=== PATIENT | female | born 1995 | race Caucasian/White ===

== ENCOUNTER 2018-06-16 20:28 | Emergency (ER) | payer OTHER, SELFPAY ==
--- OUTSIDE RECORDS SUMMARY | 2018-06-16 20:31 | XMS REPORT ---
:1995 Author Organization [employer] Care Team Providers Name Role Phone Carmela Rasmussen Provider Role Unavailable Allergies, Adverse Reactions, Alerts Substance Reaction Event Type N.K.D.A. 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 Active Assessment Acute maxillary sinusitis, J01.00 Active recurrence not specified Problem (spontaneous vaginal delivery) O80 Active Problem High-risk , young O09.623 Active multigravida in third trimester Problem LGSIL on Pap smear of cervix R87.612 Active Problem Smoker F17.200 Active Assessment exam Z39.2 Active Problem growth retardation, P05.9 Active 2,000-2,499 grams Problem GBS (group B Streptococcus O99.820 Active carrier), +RV culture, currently Medications Medication Code Code Instructions Start End Status Dosage System Date Date Amoxicillin ND 16244544728 500 MG Orally FebruaryMarch 11, Active 2 tablets every 8 hrs 2017 2018 Loestrin Fe [facility] 10032504637 1-20 MG-MCG Active 1 tablet 1/20 Orally Once a day Results Name Result Date Reference Range Unit Abnormality Flag TEST URINE ----RESULTS NEG 20180306 URINALYSIS AUTO W/O SCOPE (45997) ----PROTEIN NEG 20180306 ----pH 6.5 20180306 ----NIT NEG 20180306 ----ANDREWS TRACE 20180306 ----URO 0.2 20180306 ----SPECIFIC GRAVITY 1.015 20180306 ----BLO NEG 20180306 ----BILIRUBIN NEG 20180306 ----KETONES NEG 20180306 ----GLUCOSE NEG 20180306 Summary Purpose [employer] Submission
[2018-06-16] MEDS ORDERED: KETOROLAC 30 MG/ML INJ ONE (21:06)
[2018-06-16] MEDS ORDERED: AMOX/K CLAV 875 MG TAB ONE (21:06)
[2018-06-16] MEDS ORDERED: ACETAMINOPHEN 325 MG TABLET ONE (21:17)
--- NOTE | 2018-06-16 22:29 | ER ---
Nurse's Notes [facility] Name: Sarah Arriola Age: 23 yrs Sex: Female : 1995 Arrival Date: 06/16/2018 Time: 20:32 Bed 26 Private MD: Diagnosis: Otalgia, right ear;Sinusitis Presentation: 06/16 20:43 Presenting complaint: Patient states: she is having severe right ear pain that started kr2 on Friday and has progressively gotten worse. Pain started in left ear today. She has had a cough with green/brown mucous production. Transition of care: patient was not received from another setting of care. Onset of symptoms was June 12, 2018. Risk Assessment: Do you want to hurt yourself or someone else? Patient reports no desire to harm self or others. Initial Sepsis Screen: Does the patient meet any 2 criteria? No. Patient's initial sepsis screen is negative. Does the patient have a suspected source of infection? No. Patient's initial sepsis screen is negative. Care prior to arrival: None. 20:43 Method Of Arrival: Ambulatory kr2 20:43 Acuity: HONG 4 kr2 Triage Assessment: 20:47 General: Appears in no apparent distress. uncomfortable, well groomed, Behavior is kr2 calm, cooperative, appropriate for age. Pain: Complains of pain in ears, head Pain currently is 8 out of 10 on a pain scale. Quality of pain is described as aching, Is continuous, Alleviated by nothing. EENT: Reports sinus congestion . 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 - Social history:: Smoking status: Patient/guardian denies using tobacco. - Ebola Screening: : No symptoms or risks identified at this time. Screenin:48 Abuse screen: Denies threats or abuse. Denies injuries from another. Nutritional kr2 screening: No deficits noted. Tuberculosis screening: No symptoms or risk factors identified. Fall Risk None identified. Assessment: 20:54 General: Appears in no apparent distress. comfortable, Behavior is calm, cooperative. rv Pain: Complains of pain in right ear and left ear. Neuro: Level of Consciousness is awake, alert, obeys commands, Oriented to person, place, time, situation. Cardiovascular: Capillary refill < 3 seconds. Respiratory: Airway is patent. GI: No signs and/or symptoms were reported involving the gastrointestinal system. : No signs and/or symptoms were reported regarding the genitourinary system. EENT: No signs and/or symptoms were reported regarding the EENT system. Derm: Skin is intact. 22:33 Reassessment: Patient appears in no apparent distress at this time. Patient and/or kr2 family updated on plan of care and expected duration. Pain level reassessed. Patient is alert, oriented x 3, equal unlabored respirations, skin warm/dry/pink. Patient states feeling better. Patient states symptoms have improved. Vital Signs: 20:42 BP 139 / 83; Pulse 110; Resp 18; Temp 100.3; Pulse Ox 99% on R/A; Weight 97.98 kg; kr2 Height 5 ft. 6 in. (167.64 cm); Pain 8/10; 22:28 BP 110 / 89; Pulse 84; Resp 17; Temp 98.9; Pulse Ox 98% on R/A; kr2 20:42 Body Mass Index 34.86 (97.98 kg, 167.64 cm) kr2 ED Course: 20:32 Patient arrived in ED. es 20:42 Giana Daly, RN is Primary Nurse. kr2 20:46 Triage completed. kr2 20:48 Arm band placed on. kr2 20:49 Kwame Ayala PA is PHCP. [facility] 20:49 Thomas Rivera MD is Attending Physician. jmm 20:50 Patient has correct armband on for positive identification. Bed in low position. Call kr2 light in reach. Side rails up X 1. Pulse ox on. NIBP on. Door closed. Verbal reassurance given. Head of bed elevated. 22:28 Keiry Flaherty MD is Referral Physician. [facility] 22:33 No provider procedures requiring assistance completed. Patient did not have IV access kr2 during this emergency room visit. Administered Medications: 21:05 Drug: Ketorolac 30 mg Route: IM; Site: right deltoid; rv 21:06 Follow up: Response: Medication administered at discharge. rv 21:06 Drug: Augmentin 875 mg Route: PO; rv 21:06 Follow up: Response: Medication administered at discharge. rv 21:14 Drug: Tylenol 650 mg Route: PO; kr2 22:29 Follow up: Response: No adverse reaction; Temperature is decreased; Pain is decreased kr2 Outcome: 22:29 Discharge ordered by . christine 22:34 Discharged to home ambulatory. kr2 22:34 Condition: good 22:34 Discharge instructions given to patient, Instructed on discharge instructions, follow up and referral plans. medication usage, Demonstrated understanding of instructions, follow-up care, medications, Prescriptions given X 2. 22:34 Patient left the ED. kr2 Signatures: Kwame Ayala PA PA jmm Salyer, Edna es Reaves, Karey, RN RN kr2 Dwayne Doe RN RN rv Corrections: (The following items were deleted from the chart) 20:55 20:43 Initial Sepsis Screen: Does the patient meet any 2 criteria? No. Patient's kr2 initial sepsis screen is negative. Does the patient have a suspected source of infection? No. Patient's initial sepsis screen is negative. kr2
--- NOTE | 2018-06-16 22:29 | EDPHYS ---
Physician Documentation [facility] Name: Sarah Arriola Age: 23 yrs Sex: Female : 1995 Arrival Date: 06/16/2018 Time: 20:32 Bed 26 Private MD: ED Physician Thomas Rivera HPI: 06/16 21:06 This 23 yrs old Female presents to ER via Ambulatory with complaints of Ear jmm Pain, Sinus Congestion, Headache. 21:06 The patient presents with pain. The complaints affect the right ear. Onset: The jmm symptoms/episode began/occurred gradually, 4 day(s) ago. Modifying factors: The symptoms are alleviated by nothing, the symptoms are aggravated by nothing. Associated signs and symptoms: Pertinent positives: cough. This is a 23 year old female with no chronic medical conditions that presents to the ED with right ear pain worsening over the past 4 days. Patient also complains of productive cough. Denies fever. . 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 - Social history:: Smoking status: Patient/guardian denies using tobacco. - Ebola Screening: : No symptoms or risks identified at this time. ROS: 21:06 Cardiovascular: Negative for chest pain, palpitations, and edema. [facility] 21:06 Constitutional: Positive for body aches. 21:06 ENT: Positive for ear pain. 21:06 Respiratory: Positive for cough. 21:06 All other systems are negative. Exam: 21:06 Head/Face: atraumatic. jmm 21:06 Constitutional: The patient appears alert, awake, uncomfortable. 21:06 Head/face: Sinus tenderness, that is moderate, is located over the right ethmoid sinus, left ethmoid sinus, right maxillary sinus and left maxillary sinus. 21:06 ENT: TM's: erythema, that is mild, bilaterally. 21:06 Cardiovascular: Rate: normal, Rhythm: regular. 21:06 Respiratory: the patient does not display signs of respiratory distress, Respirations: normal. 21:06 Skin: Appearance: Color: normal in color. 21:06 Neuro: Orientation: is normal, Mentation: is normal, Memory: is normal, Gait: is steady. 21:06 Psych: Behavior/mood is pleasant, cooperative. Vital Signs: 20:42 BP 139 / 83; Pulse 110; Resp 18; Temp 100.3; Pulse Ox 99% on R/A; Weight 97.98 kg; kr2 Height 5 ft. 6 in. (167.64 cm); Pain 8/10; 22:28 BP 110 / 89; Pulse 84; Resp 17; Temp 98.9; Pulse Ox 98% on R/A; kr2 20:42 Body Mass Index 34.86 (97.98 kg, 167.64 cm) kr2 MDM: 20:55 Patient medically screened. [facility] 22:02 Data reviewed: vital signs, nurses notes. [facility] 22:28 Counseling: I had a detailed discussion with the patient and/or guardian regarding: the [facility] historical points, exam findings, and any diagnostic results supporting the discharge/admit diagnosis, the need for outpatient follow up, to return to the emergency department if symptoms worsen or persist or if there are any questions or concerns that arise at home. Response to treatment: the patient's symptoms have markedly improved after treatment. 06/16 22:06 Order name: Vital Signs; Complete Time: 22:28 [facility] Administered Medications: 21:05 Drug: Ketorolac 30 mg Route: IM; Site: right deltoid; rv 21:06 Follow up: Response: Medication administered at discharge. rv 21:06 Drug: Augmentin 875 mg Route: PO; rv 21:06 Follow up: Response: Medication administered at discharge. rv 21:14 Drug: Tylenol 650 mg Route: PO; kr2 22:29 Follow up: Response: No adverse reaction; Temperature is decreased; Pain is decreased kr2 Disposition: 06/17 06:37 Co-signature as Attending Physician, Thomas Rivera MD I agree with the assessment and [facility] plan of care. Disposition: 18 22:29 Discharged to Home. Impression: Otalgia, right ear, Sinusitis. - Condition is Stable. - Discharge Instructions: Earache, Adult, Sinusitis, Adult. - Prescriptions for Augmentin 875- 125 mg Oral Tablet - take 1 tablet by ORAL route every 12 hours for 10 days; 20 tablet. Tramadol 50 mg Oral Tablet - take 1 tablet by ORAL route every 8 hours as needed; 12 tablet. - Medication Reconciliation Form, Thank You Letter, Antibiotic Education, Prescription Opioid Use form. - Follow up: Keiry Flaherty MD; When: 2 - 3 days; Reason: Recheck today's complaints, Continuance of care, Re-evaluation by your physician. Signatures: Thomas Rivera MD MD cha Mickail, Joel, PA PA jmm Reaves, Karey, RN RN kr2 Dwayne Doe, HELLEN RN rv Corrections: (The following items were deleted from the chart) 06/16 22:34 22:29 06/16/2018 22:29 Discharged to Home. Impression: Otalgia, right ear; Sinusitis. kr2 Condition is Stable. Forms are Medication Reconciliation Form, Thank You Letter, Antibiotic Education, Prescription Opioid Use. Follow up: Keiry Flaherty; When: 2 - 3 days; Reason: Recheck today's complaints, Continuance of care, Re-evaluation by your physician. christine
[2018-06-16 22:50] VITALS: BP 110/89; TEMP 98.9; O2SAT 98
== END 2018-06-16 22:34 | disposition home or self-care (01) ==
LOC: ER 20:28
DX: J32.9 Chronic sinusitis, unspecified (principal)
CPT/HCPCS: 96372; 99283

== ENCOUNTER 2018-07-04 20:20 | Emergency (ER) | payer SELFPAY ==
--- OUTSIDE RECORDS SUMMARY | 2018-07-04 20:23 | XMS REPORT ---
:1995 Author Organization [employer] Care Team Providers Name Role Phone Carmela [...] Status Dosage System Date Date Amoxicillin ND [id number] 500 MG Orally FebruaryMarch 11, Active 2 tablets every 8 hrs 2017 2018 Loestrin Fe [facility] 21561703688 1-20 MG-MCG Active 1 tablet 1/20 Orally Once a day Results Name Result Date Reference Range Unit Abnormality Flag TEST URINE ----RESULTS NEG 20180306 URINALYSIS AUTO W/O SCOPE (05205) ----PROTEIN NEG 20180306 ----pH 6.5 20180306 ----NIT NEG 20180306 ----ANDREWS TRACE 20180306 ----URO 0.2 20180306 ----SPECIFIC GRAVITY 1.015 20180306 ----BLO NEG 20180306 ----BILIRUBIN NEG 20180306 ----KETONES NEG 20180306 ----GLUCOSE NEG 20180306 Summary Purpose [employer] Submission
[2018-07-04] MEDS ORDERED: FLUCONAZOLE 100 MG TAB ONE ×2 (21:32→21:33)
[2018-07-04 21:45] LABS: Urine Blood NEGATIVE (NEG); Urine Glucose NEGATIVE (NEG); Urine Protein NEGATIVE (NEG); Urine Specific Gravity 1.015 (1.005-1.030); Urine pH 6.5 (5.0-7.0)
--- NOTE | 2018-07-04 22:21 | EDPHYS ---
Physician Documentation [facility] Name: Sarah Arriola Age: 23 yrs Sex: Female : 1995 Arrival Date: 07/04/2018 Time: 20:23 Bed 28 Private MD: ED Physician Vega Herman HPI: 07/04 22:16 This 23 yrs old Female presents to ER via Ambulatory with complaints of Check rn for infection. 22:16 The patient presents with perineal itching. Onset: The symptoms/episode began/occurred rn at an unknown time. Severity of symptoms: At their worst the symptoms were mild, in the emergency department the symptoms are unchanged. The patient has experienced similar episodes in the past. Reports boyfriend tested for infection, told had yeast infection and recommended that she come in for treatment given they are sexually active, denies vaginal discharge, but has been on abx recently and has mild itching. . 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 - Social history:: Smoking status: Patient/guardian denies using tobacco, never smoked. - Ebola Screening: : Patient negative for fever greater than or equal to 101.5 degrees Fahrenheit, and additional compatible Ebola Virus Disease symptoms. - Family history:: not pertinent. - Hospitalizations: : No recent hospitalization is reported. ROS: 22:16 Constitutional: Negative for fever, chills, and weight loss, Eyes: Negative for injury, rn pain, redness, and discharge, Neck: Negative for injury, pain, and swelling, Cardiovascular: Negative for chest pain, palpitations, and edema, Respiratory: Negative for shortness of breath, cough, wheezing, and pleuritic chest pain, Abdomen/GI: Negative for abdominal pain, nausea, vomiting, diarrhea, and constipation, : Negative for injury, bleeding, discharge, and swelling, MS/Extremity: Negative for injury and deformity, Skin: Negative for injury, rash, and discoloration, Neuro: Negative for headache, weakness, numbness, tingling, and seizure. Exam: 22:16 Constitutional: This is a well developed, well nourished patient who is awake, alert, rn and in no acute distress. Head/Face: Normocephalic, atraumatic. Eyes: Pupils equal round and reactive to light, extra-ocular motions intact. Lids and lashes normal. Conjunctiva and sclera are non-icteric and not injected. Cornea within normal limits. Periorbital areas with no swelling, redness, or edema. Abdomen/GI: Soft, non-tender, with normal bowel sounds. No distension or tympany. No guarding or rebound. No evidence of tenderness throughout. Back: No spinal tenderness. No costovertebral tenderness. Full range of motion. Skin: Warm, dry with normal turgor. Normal color with no rashes, no lesions, and no evidence of cellulitis. MS/ Extremity: Pulses equal, no cyanosis. Neurovascular intact. Full, normal range of motion. Equal circumference. Neuro: Awake and alert, GCS 15, oriented to person, place, time, and situation. Cranial nerves II-XII grossly intact. Motor strength 5/5 in all extremities. Sensory grossly intact. Cerebellar exam normal. Normal gait. Vital Signs: 20:41 BP 119 / 69; Pulse 97; Resp 18; Temp 97.2; Pulse Ox 100% ; Weight 91.17 kg (M); Height sr5 5 ft. 6 in. (167.64 cm); 21:00 BP 113 / 86 RA Sitting (auto/reg); Pulse 99; Resp 19 S; Pulse Ox 100% on R/A; jp3 21:49 BP 111 / 78; Pulse 82; Resp 18; Pulse Ox 100% on R/A; tl3 22:23 BP 117 / 97; Pulse 104; Resp 18; Pulse Ox 100% on R/A; tl3 20:41 Body Mass Index 32.44 (91.17 kg, 167.64 cm) sr5 MDM: 21:02 Patient medically screened. rn 22:16 Differential diagnosis: urinary tract infection, vaginosis. Data reviewed: vital signs, rn nurses notes, lab test result(s), urinalysis, and as a result, I will discharge patient. Counseling: I had a detailed discussion with the patient and/or guardian regarding: the historical points, exam findings, and any diagnostic results supporting the discharge/admit diagnosis, lab results, the need for outpatient follow up, to return to the emergency department if symptoms worsen or persist or if there are any questions or concerns that arise at home. Special discussion: I discussed with the patient/guardian in detail that at this point there is no indication for admission to the hospital. It is understood, however, that if the symptoms persist or worsen the patient needs to return immediately for re-evaluation. ED course: Possible vaginosis or exposure to yeast infection, urine neg, will treat with single dose of diflucan given boyfriend being treated and patient concerned, no concern for STD.. 07/04 21:10 Order name: Urine Dipstick--Ancillary (enter results) mw2 07/04 21:10 Order name: Urine --Ancillary (enter results) [facility] 07/04 21:10 Order name: Urine Dipstick-Ancillary EDMS 07/04 21:10 Order name: Urine --Ancillary EDMS Administered Medications: 21:33 Drug: DiFLUcan 150 mg Route: PO; tl3 21:49 Follow up: Response: No adverse reaction tl3 Disposition: 07/04/18 22:20 Discharged to Home. Impression: Exposure to partner with yeast infection. - Condition is Stable. - Discharge Instructions: Vaginal Yeast Infection, Adult. - Medication Reconciliation Form, Thank You Letter, Antibiotic Education, Prescription Opioid Use form. - Follow up: Private Physician; When: As needed; Reason: Recheck today's complaints, Re-evaluation by your physician. - Problem is new. - Symptoms have improved. Signatures: Dispatcher [employer] EDIN Vega Herman MD MD rn Resecker, Sam RN RN sr5 Sara Eduardo RN RN tl3 Corrections: (The following items were deleted from the chart) 22:25 22:20 07/04/2018 22:20 Discharged to Home. Impression: Exposure to partner with yeast tl3 infection. Condition is Stable. Forms are Medication Reconciliation Form, Thank You Letter, Antibiotic Education, Prescription Opioid Use. Follow up: Private Physician; When: As needed; Reason: Recheck today's complaints, Re-evaluation by your physician. Problem is new. Symptoms have improved. rn
--- NOTE | 2018-07-04 22:21 | ER ---
Nurse's Notes [facility] Name: Sarah Arriola Age: 23 yrs Sex: Female : 1995 Arrival Date: 07/04/2018 Time: 20:23 Bed 28 Private MD: Diagnosis: Exposure to partner with yeast infection Presentation: 07/04 20:39 Presenting complaint: Patient states: 1) boyfriend treated for yeast infection sr5 recently, wants to be checked as well. Reports mild vaginal itching. 2)sinus pressure behind eyes, reports being treated for ear infection 2 weeks ago. Transition of care: patient was not received from another setting of care. Onset of symptoms was July 04, 2018. Risk Assessment: Do you want to hurt yourself or someone else? Patient reports no desire to harm self or others. Initial Sepsis Screen: Does the patient meet any 2 criteria? No. Patient's initial sepsis screen is negative. Does the patient have a suspected source of infection? No. Patient's initial sepsis screen is negative. Care prior to arrival: None. 20:39 Method Of Arrival: Ambulatory sr5 20:39 Acuity: HONG 4 sr5 Triage Assessment: 20:41 General: Appears in no apparent distress. Behavior is calm, cooperative. Pain: sr5 Complains of pain in forehead Pain currently is 6 out of 10 on a pain scale. Quality of pain is described as pressure. Neuro: Level of Consciousness is awake, alert, obeys commands, Oriented to person, place, time, situation, Gait is steady, Speech is normal. Cardiovascular: No deficits noted. Respiratory: No deficits noted. : Reports mild vaginal itching. 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 - Social history:: Smoking status: Patient/guardian denies using tobacco, never smoked. - Ebola Screening: : Patient negative for fever greater than or equal to 101.5 degrees Fahrenheit, and additional compatible Ebola Virus Disease symptoms. - Family history:: not pertinent. - Hospitalizations: : No recent hospitalization is reported. Screenin:00 Abuse screen: Denies threats or abuse. Nutritional screening: No deficits noted. tl3 Tuberculosis screening: No symptoms or risk factors identified. Fall Risk None identified. Assessment: 21:00 General: Appears in no apparent distress. comfortable, well groomed, well developed, tl3 well nourished, Behavior is calm, cooperative, appropriate for age. Pain: Complains of pain in face and forehead. Neuro: Level of Consciousness is awake, alert, obeys commands, Oriented to person, place, time, situation, Appropriate for age. Cardiovascular: Patient's skin is warm and dry. Respiratory: Airway Trachea Breath sounds are clear Breath sounds are coarse. GI: No signs and/or symptoms were reported involving the gastrointestinal system. : Urine is clear. EENT: No signs and/or symptoms were reported regarding the EENT system. Derm: No signs and/or symptoms reported regarding the dermatologic system. Musculoskeletal: No signs and/or symptoms reported regarding the musculoskeletal system. 21:49 Reassessment: Patient appears in no apparent distress at this time. No changes from tl3 previously documented assessment. Patient and/or family updated on plan of care and expected duration. Pain level reassessed. Patient is alert, oriented x 3, equal unlabored respirations, skin warm/dry/pink. 22:23 Reassessment: Patient appears in no apparent distress at this time. No changes from tl3 previously documented assessment. Patient and/or family updated on plan of care and expected duration. Pain level reassessed. Patient is alert, oriented x 3, equal unlabored respirations, skin warm/dry/pink. Vital Signs: 20:41 BP 119 / 69; Pulse 97; Resp 18; Temp 97.2; Pulse Ox 100% ; Weight 91.17 kg (M); Height sr5 5 ft. 6 in. (167.64 cm); 21:00 BP 113 / 86 RA Sitting (auto/reg); Pulse 99; Resp 19 S; Pulse Ox 100% on R/A; jp3 21:49 BP 111 / 78; Pulse 82; Resp 18; Pulse Ox 100% on R/A; tl3 22:23 BP 117 / 97; Pulse 104; Resp 18; Pulse Ox 100% on R/A; tl3 20:41 Body Mass Index 32.44 (91.17 kg, 167.64 cm) sr5 ED Course: 20:23 Patient arrived in ED. es 20:41 Triage completed. sr5 20:41 Arm band placed on. sr5 21:00 Pulse ox on. NIBP on. jp3 21:00 No provider procedures requiring assistance completed. Patient did not have IV access tl3 during this emergency room visit. 21:02 Vega Herman MD is Attending Physician. rn 21:03 Sara Eduardo, HELLEN is Primary Nurse. tl3 21:14 Placed in gown. Bed in low position. Call light in reach. Side rails up X 1. Adult w/ jp3 patient. Warm blanket given. Pillow given. 21:15 Urine --Ancillary (enter results) Sent. jp3 21:15 Urine Dipstick--Ancillary (enter results) Sent. jp3 21:15 Urine --Ancillary Sent. jp3 21:15 Urine Dipstick-Ancillary Sent. jp3 Administered Medications: 21:33 Drug: DiFLUcan 150 mg Route: PO; tl3 21:49 Follow up: Response: No adverse reaction tl3 Outcome: 22:20 Discharge ordered by . rn 22:23 Discharged to home ambulatory. tl3 22:23 Condition: good 22:23 Discharge instructions given to patient, Instructed on discharge instructions, follow up and referral plans. Demonstrated understanding of instructions, follow-up care. 22:25 Patient left the ED. tl3 Signatures: Jenae Dwyer Roman, MD MD rn Resecker, Sam RN RN sr5 Sara Eduardo, HELLEN RN tl3 Anthony Concepcion jp3 Corrections: (The following items were deleted from the chart) 21:51 21:00 BP 111 / 78; Pulse 89bpm; Resp 18bpm; Pulse Ox 98% RA; tl3 tl3
[2018-07-04 22:30] VITALS: TEMP 97.2; O2SAT 100
[2018-07-04 22:33] VITALS: BP 117/97
== END 2018-07-04 22:25 | disposition home or self-care (01) ==
LOC: ER 20:20
DX: L29.2 Pruritus vulvae (principal); Z20.89 Contact with and (suspected) exposure to other communicable diseases
CPT/HCPCS: 81003; 81025; 99284

== ENCOUNTER 2018-12-12 19:44 | Emergency (ER) | payer OTHER, SELFPAY ==
--- OUTSIDE RECORDS SUMMARY | 2018-12-12 19:47 | XMS REPORT ---
:1995 Author Organization [employer] Care Team Providers Name Role Phone Carmela [...] Status Dosage System Date Date Amoxicillin ND [id number] 500 MG Orally FebruaryMarch 11, Active 2 tablets every 8 hrs 2017 2018 Loestrin Fe FORMER[facility] NAMED [facility] [id number] 1-20 MG-MCG Active 1 tablet 1/20 Orally Once a day Results Name Result Date Reference Range Unit Abnormality Flag TEST URINE ----RESULTS NEG 20180306 URINALYSIS AUTO W/O SCOPE (25970) ----PROTEIN NEG 20180306 ----pH 6.5 20180306 ----NIT NEG 20180306 ----ANDREWS TRACE 20180306 ----URO 0.2 20180306 ----SPECIFIC GRAVITY 1.015 20180306 ----BLO NEG 20180306 ----BILIRUBIN NEG 20180306 ----KETONES NEG [id number] ----GLUCOSE NEG 20180306 Summary Purpose [employer] Submission
--- NOTE | 2018-12-12 20:23 | ER ---
Nurse's Notes [facility] Name: Sarah Arriola Age: 23 yrs Sex: Female : 1995 Arrival Date: 12/12/2018 Time: 19:46 Bed 8 Private MD: Diagnosis: Otalgia, right ear;Acute sinusitis Presentation: 12/12 20:15 Presenting complaint: Patient states: right ear pain and sinus pain intermittent X1.5 ak1 months. pt 21 weeks . Transition of care: patient was not received from another setting of care. Onset of symptoms is unknown. Risk Assessment: Do you want to hurt yourself or someone else? Patient reports no desire to harm self or others. Initial Sepsis Screen: Does the patient meet any 2 criteria? No. Patient's initial sepsis screen is negative. Does the patient have a suspected source of infection? No. Patient's initial sepsis screen is negative. Care prior to arrival: None. 20:15 Method Of Arrival: Ambulatory ak1 20:15 Acuity: HONG 4 ak1 Triage Assessment: 20:17 General: Appears in no apparent distress. Behavior is calm, cooperative. Pain: ak1 Complains of pain in right ear. EENT: Reports pain in right ear since 1.5 months, intermittent. Neuro: No deficits noted. Cardiovascular: No deficits noted. Respiratory: No deficits noted. GI: No signs and/or symptoms were reported involving the gastrointestinal system. : No signs and/or symptoms were reported regarding the genitourinary system. Derm: No signs and/or symptoms reported regarding the dermatologic system. Musculoskeletal: No signs and/or symptoms reported regarding the musculoskeletal system. 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 - Social history:: Smoking status: Patient/guardian denies using tobacco. - Ebola Screening: : No symptoms or risks identified at this time. Screenin:20 Abuse screen: Denies threats or abuse. Denies injuries from another. Nutritional ak1 screening: No deficits noted. Tuberculosis screening: No symptoms or risk factors identified. Fall Risk None identified. Vital Signs: 20:17 BP 127 / 83; Pulse 89; Resp 16; Temp 98.3(O); Pulse Ox 100% on R/A; Weight 93.44 kg ak1 (R); Height 5 ft. 7 in. (170.18 cm) (R); Pain 7/10; 20:17 Body Mass Index 32.26 (93.44 kg, 170.18 cm) ak1 ED Course: 19:46 Patient arrived in ED. ds1 20:00 Tono Kumar PA is PHCP. jr8 20:00 Chavo Minaya MD is Attending Physician. jr8 20:15 Ilana Lamas, RN is Primary Nurse. ak1 20:16 Triage completed. ak1 20:17 Arm band placed on Patient placed in an exam room, on a stretcher, on pulse oximetry, ak1 Patient notified of wait time. 20:20 Patient has correct armband on for positive identification. Bed in low position. Call ak1 light in reach. Side rails up X 1. Pulse ox on. NIBP on. 20:27 No provider procedures requiring assistance completed. Patient did not have IV access ak1 during this emergency room visit. Administered Medications: No medications were administered Outcome: 20:22 Discharge ordered by . jr8 20:27 Discharged to home ambulatory. ak1 20:27 Condition: good 20:27 Discharge instructions given to patient, Instructed on discharge instructions, follow up and referral plans. no drinking with medication, no driving heavy equipment, medication usage, safe sex practices, control, Demonstrated understanding of instructions, follow-up care, medications, Prescriptions given X 1. 20:28 Patient left the ED. ak1 Signatures: Tabby Montoya ds1 Tono Kumar PA PA jrIlana Temple, RN RN ak1
--- NOTE | 2018-12-12 20:23 | EDPHYS ---
Physician Documentation [facility] Name: Sarah Arriola Age: 23 yrs Sex: Female : 1995 Arrival Date: 12/12/2018 Time: 19:46 Bed 8 Private MD: ED Physician Chavo Minaya HPI: 12/12 20:12 This 23 yrs old Female presents to ER via Unassigned with complaints of Ear jr8 Pain. 20:12 The patient presents with pain. The complaints affect the right ear and left ear. jr8 Onset: The symptoms/episode began/occurred gradually, 2 day(s) ago. Modifying factors: The symptoms are alleviated by nothing, the symptoms are aggravated by nothing. Associated signs and symptoms: Pertinent positives: sinus congestion . Severity of symptoms: At their worst the symptoms were mild in the emergency department the symptoms are unchanged. The patient has not experienced similar symptoms in the past. The patient has not recently seen a physician. 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 - Social history:: Smoking status: Patient/guardian denies using tobacco. - Ebola Screening: : No symptoms or risks identified at this time. ROS: 20:12 Eyes: Negative for injury, pain, redness, and discharge, Neck: Negative for injury, jr8 pain, and swelling, Cardiovascular: Negative for chest pain, palpitations, and edema, Respiratory: Negative for shortness of breath, cough, wheezing, and pleuritic chest pain, Abdomen/GI: Negative for abdominal pain, nausea, vomiting, diarrhea, and constipation, Back: Negative for injury and pain, MS/Extremity: Negative for injury and deformity, Skin: Negative for injury, rash, and discoloration, Neuro: Negative for headache, weakness, numbness, tingling, and seizure. 20:12 ENT: Positive for ear pain, sinus congestion, Negative for drainage from ear(s). Exam: 20:12 Head/Face: Normocephalic, atraumatic. Eyes: Pupils equal round and reactive to light, jr8 extra-ocular motions intact. Lids and lashes normal. Conjunctiva and sclera are non-icteric and not injected. Cornea within normal limits. Periorbital areas with no swelling, redness, or edema. ENT: Nares patent. No nasal discharge, no septal abnormalities noted. Tympanic membranes are normal and external auditory canals are clear. Oropharynx with no redness, swelling, or masses, exudates, or evidence of obstruction, uvula midline. Mucous membranes moist. Neck: Trachea midline, no thyromegaly or masses palpated, and no cervical lymphadenopathy. Supple, full range of motion without nuchal rigidity, or vertebral point tenderness. No Meningismus. Cardiovascular: Regular rate and rhythm with a normal S1 and S2. No gallops, murmurs, or rubs. Normal PMI, no JVD. No pulse deficits. Respiratory: Lungs have equal breath sounds bilaterally, clear to auscultation and percussion. No rales, rhonchi or wheezes noted. No increased work of breathing, no retractions or nasal flaring. Abdomen/GI: Soft, non-tender, with normal bowel sounds. No distension or tympany. No guarding or rebound. No evidence of tenderness throughout. Back: No spinal tenderness. No costovertebral tenderness. Full range of motion. Skin: Warm, dry with normal turgor. Normal color with no rashes, no lesions, and no evidence of cellulitis. MS/ Extremity: Pulses equal, no cyanosis. Neurovascular intact. Full, normal range of motion. Neuro: Awake and alert, GCS 15, oriented to person, place, time, and situation. Cranial nerves II-XII grossly intact. Motor strength 5/5 in all extremities. Sensory grossly intact. Cerebellar exam normal. Normal gait. Vital Signs: 20:17 BP 127 / 83; Pulse 89; Resp 16; Temp 98.3(O); Pulse Ox 100% on R/A; Weight 93.44 kg ak1 (R); Height 5 ft. 7 in. (170.18 cm) (R); Pain 7/10; 20:17 Body Mass Index 32.26 (93.44 kg, 170.18 cm) ak1 MDM: 20:00 Patient medically screened. jr8 20:12 Data reviewed: vital signs, nurses notes, and as a result, I will discharge patient. jr8 Data interpreted: Pulse oximetry: on room air is 100 %. Interpretation: normal. Counseling: I had a detailed discussion with the patient and/or guardian regarding: the historical points, exam findings, and any diagnostic results supporting the discharge/admit diagnosis, the need for outpatient follow up, a family practitioner, to return to the emergency department if symptoms worsen or persist or if there are any questions or concerns that arise at home. Administered Medications: No medications were administered Disposition: 12/12/18 20:22 Discharged to Home. Impression: Otalgia, right ear, Acute sinusitis. - Condition is Stable. - Discharge Instructions: Sinusitis, Adult. - Prescriptions for Augmentin 875- 125 mg Oral Tablet - take 1 tablet by ORAL route every 12 hours for 10 days; 20 tablet. - Medication Reconciliation Form, Thank You Letter, Antibiotic Education, Prescription Opioid Use form. - Follow up: Private Physician; When: 5 - 6 days; Reason: Recheck today's complaints, Continuance of care, Re-evaluation by your physician. - Problem is new. - Symptoms have improved. Addendum: 12/14/2018 02:51 Co-signature as Attending Physician, Chavo Minaya MD. g s Signatures: Tono Kumar PA PA jr8 Ilana Lamas RN RN ak1 Chavo Minaya MD MD Corrections: (The following items were deleted from the chart) 12/12 20:28 20:22 12/12/2018 20:22 Discharged to Home. Impression: Otalgia, right ear; Acute ak1 sinusitis. Condition is Stable. Forms are Medication Reconciliation Form, Thank You Letter, Antibiotic Education, Prescription Opioid Use. Follow up: Private Physician; When: 5 - 6 days; Reason: Recheck today's complaints, Continuance of care, Re-evaluation by your physician. Problem is new. Symptoms have improved. jr8
[2018-12-12 21:01] VITALS: BP 127/83; TEMP 98.3; O2SAT 100
== END 2018-12-12 20:28 | disposition home or self-care (01) ==
LOC: ER 19:44
DX: H92.01 Otalgia, right ear (principal); J01.90 Acute sinusitis, unspecified; O99.342 Other mental disorders complicating pregnancy, second trimester; F32.9 Major depressive disorder, single episode, unspecified; Z3A.21 21 weeks gestation of pregnancy; Z79.82 Long term (current) use of aspirin; Z79.899 Other long term (current) drug therapy
CPT/HCPCS: 99283

== ENCOUNTER 2019-01-08 22:55 | Emergency (ER) | payer OTHER ==
--- OUTSIDE RECORDS SUMMARY | 2019-01-08 22:57 | XMS REPORT ---
:1995 Author Organization [employer] Care Team Providers Name Role Phone Carmela [...] Status Dosage System Date Date Amoxicillin ND [id number] 500 MG Orally FebruaryMarch 11, Active 2 tablets every 8 hrs 2017 2018 Loestrin Fe [facility] [id number] 1-20 MG-MCG Active 1 tablet 1/20 Orally Once a day Results Name Result Date Reference Range Unit Abnormality Flag TEST URINE ----RESULTS NEG 20180306 URINALYSIS AUTO W/O SCOPE (64173) ----PROTEIN NEG 20180306 ----pH 6.5 20180306 ----NIT NEG 20180306 ----ANDREWS TRACE 20180306 ----URO 0.2 20180306 ----SPECIFIC GRAVITY 1.015 20180306 ----BLO NEG 20180306 ----BILIRUBIN NEG 20180306 ----KETONES NEG 20180306 ----GLUCOSE NEG 20180306 Summary Purpose [employer] Submission
--- NOTE | 2019-01-08 23:15 | ER ---
Nurse's Notes [facility] Name: Sarah Bunch Age: 23 yrs Sex: Female : 1995 Arrival Date: 01/08/2019 Time: 22:56 Bed 7 Private MD: Diagnosis: Acute upper respiratory infection, unspecified Presentation: 01/08 23:00 Presenting complaint: Patient states: that she has a cough for 10 days with green fc sputum. Has chest tightness but only with the cough. Right ear pain on and off but denies sore throat. Was on antibiotics 1 month ago for sinus infection. Transition of care: patient was not received from another setting of care. Onset of symptoms was December 30, 2018. Risk Assessment: Do you want to hurt yourself or someone else? Patient reports no desire to harm self or others. Initial Sepsis Screen: Does the patient meet any 2 criteria? HR > 90 bpm. Yes Does the patient have a suspected source of infection? No. Patient's initial sepsis screen is negative. Care prior to arrival: None. 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 - Social history:: Smoking status: Patient/guardian denies using tobacco, Patient/guardian denies using alcohol, street drugs. - Ebola Screening: : Patient negative for fever greater than or equal to 101.5 degrees Fahrenheit, and additional compatible Ebola Virus Disease symptoms Patient denies exposure to infectious person Patient denies travel to an Ebola-affected area in the 21 days before illness onset. Screenin:10 Abuse screen: Denies threats or abuse. Nutritional screening: No deficits noted. fc Tuberculosis screening: No symptoms or risk factors identified. Fall Risk None identified. Assessment: 23:15 General: Appears in no apparent distress. uncomfortable, Behavior is calm, cooperative, tl2 appropriate for age. Pain: Complains of pain in left ear Pain does not radiate. Neuro: Level of Consciousness is awake, alert, obeys commands, Oriented to person, place, time, situation. Cardiovascular: Denies chest pain, Patient's skin is warm and dry. Respiratory: Reports cough that is hacking, persistent pain with cough Airway is patent Respiratory effort is even, unlabored, Respiratory pattern is regular, symmetrical, Breath sounds are clear bilaterally. GI: No signs and/or symptoms were reported involving the gastrointestinal system. : No signs and/or symptoms were reported regarding the genitourinary system. Derm: Skin is pink, warm \T\ dry. 23:24 Reassessment: Patient appears in no apparent distress at this time. pt verbalized tl2 understanding of discharge instructions, need for follow up and prescription usage. Vital Signs: 23:00 BP 135 / 73; Pulse 104; Resp 18; Temp 97.8(O); Pulse Ox 99% on R/A; Weight 93.44 kg (R); Height 5 ft. 6 in. (167.64 cm) (R); Pain 5/10; 23:00 Body Mass Index 33.25 (93.44 kg, 167.64 cm) ED Course: 22:56 Patient arrived in ED. am2 23:00 Arm band placed on Patient placed in an exam room, on a stretcher. 23:06 Irlanda Hanson FNP is [facility]. sd 23:06 Thomas Rivera MD is Attending Physician. sd 23:09 Triage completed. 23:10 Patient has correct armband on for positive identification. Bed in low position. Call light in reach. 23:22 Barbie Foley, HELLEN is Primary Nurse. tl2 23:27 No provider procedures requiring assistance completed. Patient did not have IV access tl2 during this emergency room visit. Administered Medications: No medications were administered Outcome: 23:15 Discharge ordered by . nh 23:27 Discharged to home ambulatory, with friend. tl2 23:27 Condition: stable 23:27 Discharge instructions given to patient, Instructed on discharge instructions, follow up and referral plans. medication usage, Demonstrated understanding of instructions, follow-up care, medications, Prescriptions given X 1. 23:28 Patient left the ED. tl2 Signatures: Irlanda Hasnon FNP FNP Analia Fetlon RN RN Barbie Foley RN RN tl2 Ana Maria Alvarez am2 Corrections: (The following items were deleted from the chart) 23:11 23:10 Patient has correct armband on for positive identification. [facility]
--- NOTE | 2019-01-08 23:15 | EDPHYS ---
Physician Documentation [facility] Name: Sarah Bunch Age: 23 yrs Sex: Female : 1995 Arrival Date: 01/08/2019 Time: 22:56 Bed 7 Private MD: ED Physician Thomas Rivera HPI: 01/08 23:13 This 23 yrs old Female presents to ER via Ambulatory with complaints of nh Cough, Chest Tightness. 23:13 The patient or guardian reports cough, that is intermittent, described as moderate. nh Onset: The symptoms/episode began/occurred 5 day(s) ago. Severity of symptoms: At their worst the symptoms were moderate, just prior to arrival, in the emergency department the symptoms are unchanged. Associated signs and symptoms: The patient has no apparent associated signs or symptoms. The patient has not experienced similar symptoms in the past. The patient has not recently seen a physician. 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 - Social history:: Smoking status: Patient/guardian denies using tobacco, Patient/guardian denies using alcohol, street drugs. - Ebola Screening: : Patient negative for fever greater than or equal to 101.5 degrees Fahrenheit, and additional compatible Ebola Virus Disease symptoms Patient denies exposure to infectious person Patient denies travel to an Ebola-affected area in the 21 days before illness onset. ROS: 23:13 Constitutional: Negative for fever, chills, and weight loss, Eyes: Negative for injury, nh pain, redness, and discharge, Neck: Negative for injury, pain, and swelling, Cardiovascular: Negative for chest pain, palpitations, and edema, Abdomen/GI: Negative for abdominal pain, nausea, vomiting, diarrhea, and constipation, Back: Negative for injury and pain, : Negative for injury, bleeding, discharge, and swelling, MS/Extremity: Negative for injury and deformity, Skin: Negative for injury, rash, and discoloration, Neuro: Negative for headache, weakness, numbness, tingling, and seizure. 23:13 ENT: Positive for ear pain. 23:13 Respiratory: Positive for cough, with no reported sputum. 23:13 Abdomen/GI: Exam: 23:13 Constitutional: This is a well developed, well nourished patient who is awake, alert, nh and in no acute distress. Head/Face: Normocephalic, atraumatic. Eyes: Pupils equal round and reactive to light, extra-ocular motions intact. Lids and lashes normal. Conjunctiva and sclera are non-icteric and not injected. Cornea within normal limits. Periorbital areas with no swelling, redness, or edema. ENT: Nares patent. No nasal discharge, no septal abnormalities noted. Tympanic membranes are normal and external auditory canals are clear. Oropharynx with no redness, swelling, or masses, exudates, or evidence of obstruction, uvula midline. Mucous membranes moist. Neck: Trachea midline, no thyromegaly or masses palpated, and no cervical lymphadenopathy. Supple, full range of motion without nuchal rigidity, or vertebral point tenderness. No Meningismus. Chest/axilla: Normal chest wall appearance and motion. Nontender with no deformity. No lesions are appreciated. Cardiovascular: Regular rate and rhythm with a normal S1 and S2. No gallops, murmurs, or rubs. Normal PMI, no JVD. No pulse deficits. Respiratory: Lungs have equal breath sounds bilaterally, clear to auscultation and percussion. No rales, rhonchi or wheezes noted. No increased work of breathing, no retractions or nasal flaring. Abdomen/GI: Soft, non-tender, with normal bowel sounds. No distension or tympany. No guarding or rebound. No evidence of tenderness throughout. Back: No spinal tenderness. No costovertebral tenderness. Full range of motion. Skin: Warm, dry with normal turgor. Normal color with no rashes, no lesions, and no evidence of cellulitis. MS/ Extremity: Pulses equal, no cyanosis. Neurovascular intact. Full, normal range of motion. Neuro: Awake and alert, GCS 15, oriented to person, place, time, and situation. Cranial nerves II-XII grossly intact. Motor strength 5/5 in all extremities. Sensory grossly intact. Cerebellar exam normal. Normal gait. Psych: Awake, alert, with orientation to person, place and time. Behavior, mood, and affect are within normal limits. Vital Signs: 23:00 BP 135 / 73; Pulse 104; Resp 18; Temp 97.8(O); Pulse Ox 99% on R/A; Weight 93.44 kg fc (R); Height 5 ft. 6 in. (167.64 cm) (R); Pain 5/10; 23:00 Body Mass Index 33.25 (93.44 kg, 167.64 cm) fc MDM: 23:06 Patient medically screened. id 23:13 Data reviewed: vital signs, nurses notes, I have discussed the patient's id presentation/case with the attending Emergency Department Physician; and as a result, I will discharge patient. Counseling: I had a detailed discussion with the patient and/or guardian regarding: the historical points, exam findings, and any diagnostic results supporting the discharge/admit diagnosis, the need for outpatient follow up, to return to the emergency department if symptoms worsen or persist or if there are any questions or concerns that arise at home. Administered Medications: No medications were administered Disposition: 01/08/19 23:15 Discharged to Home. Impression: Acute upper respiratory infection, unspecified. - Condition is Stable. - Discharge Instructions: Upper Respiratory Infection, Adult. - Prescriptions for Zithromax Z- Ac 250 mg Oral Tablet - take 1 tablet by ORAL route as directed for 5 days Day 1 - take two (2) tablets one time. Day 2, 3, 4 , 5 take one (1) tablet once daily.; 6 tablet. - Medication Reconciliation Form, Thank You Letter, Antibiotic Education, Prescription Opioid Use form. - Follow up: Private Physician; When: 2 - 3 days; Reason: Recheck today's complaints. - Problem is new. - Symptoms are unchanged. Addendum: 01/13/2019 11:08 Co-signature as Attending Physician, Thomas Rivera MD I agree with the assessment and c plan of care. Signatures: Thomas Rivera MD MD cha Cronk, Niki, 4 H YOUTH DEVELOPMENT SPECIALIST 4 H YOUTH DEVELOPMENT SPECIALIST id Analia Hernandez RN RN Barbie Foley RN RN tl2 Corrections: (The following items were deleted from the chart) 01/08 23:28 23:15 01/08/2019 23:15 Discharged to Home. Impression: Acute upper respiratory tl2 infection, unspecified. Condition is Stable. Forms are Medication Reconciliation Form, Thank You Letter, Antibiotic Education, Prescription Opioid Use. Follow up: Private Physician; When: 2 - 3 days; Reason: Recheck today's complaints. Problem is new. Symptoms are unchanged. nh
[2019-01-08 23:34] VITALS: BP 135/73; TEMP 97.8; O2SAT 99
== END 2019-01-08 23:28 | disposition home or self-care (01) ==
LOC: ER 22:55
DX: J06.9 Acute upper respiratory infection, unspecified (principal); O99.342 Other mental disorders complicating pregnancy, second trimester; F32.9 Major depressive disorder, single episode, unspecified; Z3A.25 25 weeks gestation of pregnancy; Z79.82 Long term (current) use of aspirin
CPT/HCPCS: 99282

== ENCOUNTER 2019-02-19 02:22 | Emergency (ER) | payer OTHER ==
--- OUTSIDE RECORDS SUMMARY | 2019-02-19 02:25 | XMS REPORT ---
:1995 Author Organization [employer] Care Team Providers Name Role Phone Carmela [...] Status Dosage System Date Date Amoxicillin ND [id number] 500 MG Orally FebruaryMarch 11, Active 2 tablets every 8 hrs 2017 2018 Loestrin Fe [facility] [id number] 1-20 MG-MCG Active 1 tablet 1/20 Orally Once a day Results Name Result Date Reference Range Unit Abnormality Flag TEST URINE ----RESULTS NEG 20180306 URINALYSIS AUTO W/O SCOPE (12633) ----PROTEIN NEG 20180306 ----pH 6.5 20180306 ----NIT NEG 20180306 ----ANDREWS TRACE 20180306 ----URO 0.2 20180306 ----SPECIFIC GRAVITY 1.015 20180306 ----BLO NEG 20180306 ----BILIRUBIN NEG 20180306 ----KETONES NEG 20180306 ----GLUCOSE NEG 20180306 Summary Purpose [employer] Submission
--- NOTE | 2019-02-19 03:17 | ER ---
Nurse's Notes [facility] Name: Sarah Bunch Age: 24 yrs Sex: Female : 1995 Arrival Date: 02/19/2019 Time: 02:26 Bed 8 Private MD: Diagnosis: Annette vagintis Presentation: 02/19 02:38 Presenting complaint: Patient states: i have right ear pain, sinus pressure and vaginal mg2 itching for 4 days. i am 31 weeks. Transition of care: patient was not received from another setting of care. Onset of symptoms was February 16, 2019. Risk Assessment: Do you want to hurt yourself or someone else? Patient reports no desire to harm self or others. Initial Sepsis Screen: Does the patient meet any 2 criteria? No. Patient's initial sepsis screen is negative. Does the patient have a suspected source of infection? No. Patient's initial sepsis screen is negative. Care prior to arrival: None. 02:38 Method Of Arrival: Ambulatory mg2 02:38 Acuity: HONG 4 mg2 Triage Assessment: 02:51 General: Appears in no apparent distress. Behavior is calm, cooperative. Pain: ak1 Complains of pain in ear pain, sinus pain and vaginal itching. EENT: Reports pain since 4days [place] ear pain. Neuro: No deficits noted. Cardiovascular: No deficits noted. Respiratory: No deficits noted. GI: No signs and/or symptoms were reported involving the gastrointestinal system. : Reports vaginal itching, since 4days [place]. Derm: No signs and/or symptoms reported regarding the dermatologic system. Musculoskeletal: No signs and/or symptoms reported regarding the musculoskeletal system. PATIENT SVCS MGR: 02:41 LMP 07/15/2018 mg2 Historical: - Allergies: 02:42 No Known Allergies; mg2 - Home Meds: 02:42 aspirin 81 mg Oral chew 1 tab once daily [Active]; Nexium Oral once daily [Active]; mg2 Lexapro 10 mg Oral tab 1 tab once daily [Active]; Zantac Oral 2 times per day [Active]; - PMHx: 02:42 Bipolar disorder; GERD; Depression; PTSD; mg2 - PSHx: 02:42 None; mg2 - Immunization history:: Flu vaccine is not up to date. - Social history:: Smoking status: Patient/guardian denies using tobacco, Patient/guardian denies using alcohol, street drugs, IV drugs. - Ebola Screening: : No symptoms or risks identified at this time. Screenin:51 Abuse screen: Denies threats or abuse. Denies injuries from another. Nutritional ak1 screening: No deficits noted. Tuberculosis screening: No symptoms or risk factors identified. Fall Risk None identified. Assessment: 02:53 Reassessment: Patient appears in no apparent distress at this time. No changes from ak1 previously documented assessment. Patient and/or family updated on plan of care and expected duration. Pain level reassessed. Patient is alert, oriented x 3, equal unlabored respirations, skin warm/dry/pink. see triage assessment. Vital Signs: 02:41 BP 140 / 90; Pulse 95; Resp 18; Temp 98.4; Pulse Ox 100% on R/A; Weight 92.53 kg; mg2 Height 5 ft. 7 in. (170.18 cm); Pain 4/10; 03:24 BP 120 / 79; Pulse 105; Resp 18; Pulse Ox 99% on R/A; ak1 02:41 Body Mass Index 31.95 (92.53 kg, 170.18 cm) mg2 ED Course: 02:26 Patient arrived in ED. do 02:41 Triage completed. mg2 02:43 Patient has correct armband on for positive identification. mg2 02:51 Ilana Lamas RN is Primary Nurse. ak1 02:51 Pulse ox on. NIBP on. ak1 02:51 Arm band placed on Patient placed in an exam room, on a stretcher, Patient notified of ak1 wait time. 03:09 Duc Simmons MD is Attending Physician. tw4 03:24 No provider procedures requiring assistance completed. Patient did not have IV access ak1 during this emergency room visit. Administered Medications: No medications were administered Outcome: 03:16 Discharge ordered by . tw4 03:24 Discharged to home ambulatory. ak1 03:24 Condition: stable 03:24 Discharge instructions given to patient, Instructed on discharge instructions, follow up and referral plans. medication usage, Demonstrated understanding of instructions, follow-up care, medications, Prescriptions given X 1. 03:35 Patient left the ED. ak1 Signatures: Ilana Lamas RN RN ak1 Elida Maier Terrence, MD MD tw4 Gardose, Jaron, RN RN mg2
[2019-02-19 03:44] VITALS: TEMP 98.4
[2019-02-19 03:46] VITALS: BP 120/79; O2SAT 99
--- NOTE | 2019-02-20 03:38 | EDPHYS ---
Physician Documentation [facility] Name: Sarah Bunch Age: 24 yrs Sex: Female : 1995 Arrival Date: 02/19/2019 Time: 02:26 Bed 8 Private MD: ED Physician Duc Simmons HPI: 02/19 05:50 This 24 yrs old Female presents to ER via Ambulatory with complaints of Ear tw4 Pain, Sinus Pain, Vaginal Itching. 05:50 The patient presents with pain. The complaints affect the right ear. Onset: The tw4 symptoms/episode began/occurred today. Modifying factors: The symptoms are alleviated by nothing, the symptoms are aggravated by nothing. Associated signs and symptoms: Pertinent positives: vaginal itching. Severity of symptoms: At their worst the symptoms were moderate in the emergency department the symptoms are unchanged. The patient has not experienced similar symptoms in the past. 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 - Social history:: Smoking status: Patient/guardian denies using tobacco, Patient/guardian denies using alcohol, street drugs, IV drugs. - Ebola Screening: : No symptoms or risks identified at this time. ROS: 05:50 Constitutional: Negative for fever, chills, and weight loss, Eyes: Negative for injury, tw4 pain, redness, and discharge, Cardiovascular: Negative for chest pain, palpitations, and edema, Respiratory: Negative for shortness of breath, cough, wheezing, and pleuritic chest pain, Abdomen/GI: Negative for abdominal pain, nausea, vomiting, diarrhea, and constipation, MS/Extremity: Negative for injury and deformity, Skin: Negative for injury, rash, and discoloration. 05:50 : Positive for vaginal itching, Negative for urinary symptoms, burning with tw4 urination, difficulty urinating, bladder incontinence, foul smelling urine, vaginal bleeding, vaginal discharge, menstrual abnormality, missed period. Exam: 05:50 Constitutional: This is a well developed, well nourished patient who is awake, alert, tw4 and in no acute distress. Head/Face: Normocephalic, atraumatic. Eyes: Pupils equal round and reactive to light, extra-ocular motions intact. Lids and lashes normal. Conjunctiva and sclera are non-icteric and not injected. Cornea within normal limits. Periorbital areas with no swelling, redness, or edema. Chest/axilla: Normal chest wall appearance and motion. Nontender with no deformity. No lesions are appreciated. Cardiovascular: Regular rate and rhythm with a normal S1 and S2. No gallops, murmurs, or rubs. Normal PMI, no JVD. No pulse deficits. 05:50 Respiratory: Lungs have equal breath sounds bilaterally, clear to auscultation and percussion. No rales, rhonchi or wheezes noted. No increased work of breathing, no retractions or nasal flaring. Abdomen/GI: Soft, non-tender, with normal bowel sounds. No distension or tympany. No guarding or rebound. No evidence of tenderness throughout. MS/ Extremity: Pulses equal, no cyanosis. Neurovascular intact. Full, normal range of motion. Neuro: Awake and alert, GCS 15, oriented to person, place, time, and situation. Cranial nerves II-XII grossly intact. Motor strength 5/5 in all extremities. Sensory grossly intact. Cerebellar exam normal. Normal gait. 05:50 ENT: External ear(s): are unremarkable, Ear canal(s): are normal, TM's: are normal. Vital Signs: 02:41 BP 140 / 90; Pulse 95; Resp 18; Temp 98.4; Pulse Ox 100% on R/A; Weight 92.53 kg; mg2 Height 5 ft. 7 in. (170.18 cm); Pain 4/10; 03:24 BP 120 / 79; Pulse 105; Resp 18; Pulse Ox 99% on R/A; ak1 02:41 Body Mass Index 31.95 (92.53 kg, 170.18 cm) mg2 MDM: 03:09 Patient medically screened. tw4 05:50 Differential diagnosis: otitis media, otitis externa. Data reviewed: vital signs, tw4 nurses notes. Data interpreted: cook ice cream:. Test interpretation: by ED physician or midlevel provider: ECG. Counseling: I had a detailed discussion with the patient and/or guardian regarding: the historical points, exam findings, and any diagnostic results supporting the discharge/admit diagnosis. Special discussion: I discussed with the patient/guardian in detail that at this point there is no indication for admission to the hospital. It is understood, however, that if the symptoms persist or worsen the patient needs to return immediately for re-evaluation. 05:55 Medical screen evaluation completed. [facility] emergency medical condition absent. tw4 Administered Medications: No medications were administered Disposition: 06:08 Chart complete. tw4 Disposition: 02/19/19 03:16 Discharged to Home. Impression: Annette vagintis. - Condition is Stable. - Discharge Instructions: Vaginal Yeast Infection, Adult. - Prescriptions for Diflucan 150 mg Oral Tablet - take 1 tablet by ORAL route one time for 1 day; 1 tablet. - Medication Reconciliation Form, Thank You Letter, Antibiotic Education, Prescription Opioid Use form. - Follow up: Private Physician; When: Upon discharge from the Emergency Department; Reason: If symptoms return, Recheck today's complaints, Continuance of care. - Problem is new. - Symptoms have improved. Signatures: Ilana Lamas RN RN ak1 Duc Simmons MD MD tw4 Jaron Miller RN RN mg2 Corrections: (The following items were deleted from the chart) 03:35 03:16 02/19/2019 03:16 Discharged to Home. Impression: Annette vagintis. Condition is ak1 Stable. Forms are Medication Reconciliation Form, Thank You Letter, Antibiotic Education, Prescription Opioid Use. Follow up: Private Physician; When: Upon discharge from the Emergency Department; Reason: If symptoms return, Recheck today's complaints, Continuance of care. Problem is new. Symptoms have improved. tw4
== END 2019-02-19 03:35 | disposition home or self-care (01) ==
LOC: ER 02:22
DX: B37.3 Candidiasis of vulva and vagina (principal); F31.9 Bipolar disorder, unspecified; F32.9 Major depressive disorder, single episode, unspecified; F43.10 Post-traumatic stress disorder, unspecified; K21.9 Gastro-esophageal reflux disease without esophagitis; Z79.82 Long term (current) use of aspirin
CPT/HCPCS: 99283

== ENCOUNTER 2019-03-31 19:07 | Emergency (ER) | payer OTHER ==
--- OUTSIDE RECORDS SUMMARY | 2019-03-31 19:10 | XMS REPORT ---
:1995 Author Organization [employer] Care Team Providers Name Role Phone Carmlea Rasmussen Provider Role Unavailable Allergies, Adverse Reactions, [...] Status Dosage System Date Date Amoxicillin ND [id number] 500 MG Orally FebruaryMarch 11, Active 2 tablets every 8 hrs 2017 2018 Loestrin Fe [facility] [id number] 1-20 MG-MCG Active 1 tablet 1/20 Orally Once a day Results Name Result Date Reference Range Unit Abnormality Flag TEST URINE ----RESULTS NEG 20180306 URINALYSIS AUTO W/O SCOPE (81148) ----PROTEIN NEG 20180306 ----pH 6.5 20180306 ----NIT NEG 20180306 ----ANDREWS TRACE 20180306 ----URO 0.2 20180306 ----SPECIFIC GRAVITY 1.015 20180306 ----BLO NEG 20180306 ----BILIRUBIN NEG 20180306 ----KETONES NEG 20180306 ----GLUCOSE NEG 20180306 Summary Purpose [employer] Submission
--- NOTE | 2019-03-31 19:29 | EDPHYS ---
Physician Documentation [facility] Name: Sarah Bunch Age: 24 yrs Sex: Female : 1995 Arrival Date: 03/31/2019 Time: 19:10 Bed 12 Private MD: ED Physician Chavo Minaya HPI: 03/31 19:28 This 24 yrs old Female presents to ER via Ambulatory with complaints of Right pm1 Ear Pain, Sinus Congestion. 19:28 The patient presents with ear pain for two days and sinus pain and congestion for 1 pm1 month. The complaints affect the right ear. Modifying factors: The symptoms are alleviated by nothing, the symptoms are aggravated by nothing. Associated signs and symptoms: Pertinent positives: Pertinent negatives: cough, fever, shortness of breath, sore throat. Severity of symptoms: in the emergency department the symptoms are worse. The patient has been recently seen by a physician: OB and instructed to present to the ER for evaluation of ear pain. Given a paper from the OB that has written that Levaquin and Augmentin are not okay but amoxicillin is fine. Historical: - Allergies: 19:15 No Known Allergies; hb - PMHx: 19:15 Bipolar disorder; Depression; GERD; PTSD; hb - PSHx: 19:15 None; hb - Immunization history:: Adult Immunizations up to date. - Social history:: Smoking status: Patient/guardian denies using tobacco. - Ebola Screening: : No symptoms or risks identified at this time. ROS: 19:28 Constitutional: Negative for fever, chills, and weight loss, Eyes: Negative for injury, pm1 pain, redness, and discharge, Neck: Negative for injury, pain, and swelling, Cardiovascular: Negative for chest pain, palpitations, and edema, Respiratory: Negative for shortness of breath, cough, wheezing, and pleuritic chest pain. 19:28 Abdomen/GI: Negative for abdominal pain, nausea, vomiting, diarrhea, and constipation, Back: Negative for injury and pain, MS/Extremity: Negative for injury and deformity, Skin: Negative for injury, rash, and discoloration. 19:28 ENT: Positive for ear pain, sinus congestion, sinus pain, Negative for sore throat, difficulty swallowing, difficulty handling secretions, hoarseness. 19:28 Neuro: Positive for headache, of the forehead, Negative for numbness, tingling, weakness. Exam: 19:28 Constitutional: This is a well developed, well nourished patient who is awake, alert, pm1 and in no acute distress. 19:28 Eyes: Pupils equal round and reactive to light, extra-ocular motions intact. Lids and lashes normal. Conjunctiva and sclera are non-icteric and not injected. Cornea within normal limits. Periorbital areas with no swelling, redness, or edema. ENT: Nares patent. No nasal discharge, no septal abnormalities noted. Tympanic membranes are normal and external auditory canals are clear. Oropharynx with no redness, swelling, or masses, exudates, or evidence of obstruction, uvula midline. Mucous membranes moist. Neck: Trachea midline, no thyromegaly or masses palpated, and no cervical lymphadenopathy. Supple, full range of motion without nuchal rigidity, or vertebral point tenderness. No Meningismus. Chest/axilla: Normal chest wall appearance and motion. Nontender with no deformity. No lesions are appreciated. Cardiovascular: Regular rate and rhythm with a normal S1 and S2. No gallops, murmurs, or rubs. Normal PMI, no JVD. No pulse deficits. Respiratory: Lungs have equal breath sounds bilaterally, clear to auscultation and percussion. No rales, rhonchi or wheezes noted. No increased work of breathing, no retractions or nasal flaring. Back: No spinal tenderness. No costovertebral tenderness. Full range of motion. 19:28 Skin: Warm, dry with normal turgor. Normal color with no rashes, no lesions, and no evidence of cellulitis. MS/ Extremity: Pulses equal, no cyanosis. Neurovascular intact. Full, normal range of motion. 19:28 Head/face: Sinus tenderness, that is mild, is located over the right frontal sinus and left frontal sinus. 19:28 Abdomen/GI: Inspection: gravid appearance, is noted, Bowel sounds: normal, Palpation: abdomen is soft and non-tender. 19:28 Neuro: Orientation: is normal, Motor: is normal, moves all fours. Vital Signs: 19:14 BP 143 / 83; Pulse 82; Resp 16; Temp 98.2; Pulse Ox 100% on R/A; Weight 97.52 kg; hb Height 5 ft. 2 in. (157.48 cm); Pain 9/10; 19:14 Body Mass Index 39.32 (97.52 kg, 157.48 cm) [facility]: 19:23 Patient medically screened. pm1 19:28 Data reviewed: vital signs. Data interpreted: Pulse oximetry: on room air is 100 %. pm1 Interpretation: normal. Counseling: I had a detailed discussion with the patient and/or guardian regarding: the historical points, exam findings, and any diagnostic results supporting the discharge/admit diagnosis, the need for outpatient follow up, to return to the emergency department if symptoms worsen or persist or if there are any questions or concerns that arise at home. Administered Medications: No medications were administered Disposition: 03/31/19 19:28 Discharged to Home. Impression: Otalgia, right ear, Acute sinusitis. - Condition is Stable. - Discharge Instructions: Earache, Adult, Sinusitis, Adult. - Prescriptions for Amoxicillin 500 mg Oral Capsule - take 1 capsule by ORAL route every 8 hours for 10 days; 30 tablet. - Medication Reconciliation Form, Thank You Letter, Antibiotic Education, Prescription Opioid Use form. - Follow up: Emergency Department; When: As needed; Reason: Worsening of condition. Follow up: Private Physician; When: 2 - 3 days; Reason: Recheck today's complaints, Continuance of care, Re-evaluation by your physician. - Problem is new. - Symptoms have improved. Addendum: 04/01/2019 22:47 Co-signature as Attending Physician, Chavo Minaya MD. g s Signatures: Anupama Guerra RN RN aj1 Silver Tyler, [employer] DIRECTOR OF HOME HEALTH SALES pm1 Heather Meneses RN RN Chavo Minaya MD MD Corrections: (The following items were deleted from the chart) 03/31 20:08 19:28 03/31/2019 19:28 Discharged to Home. Impression: Otalgia, right ear; Acute aj1 sinusitis. Condition is Stable. Forms are Medication Reconciliation Form, Thank You Letter, Antibiotic Education, Prescription Opioid Use. Follow up: Emergency Department; When: As needed; Reason: Worsening of condition. Follow up: Private Physician; When: 2 - 3 days; Reason: Recheck today's complaints, Continuance of care, Re-evaluation by your physician. Problem is new. Symptoms have improved. pm1
--- NOTE | 2019-03-31 19:29 | ER ---
Nurse's Notes [facility] Name: Sarah Bunch Age: 24 yrs Sex: Female : 1995 Arrival Date: 03/31/2019 Time: 19:10 Bed 12 Private MD: Diagnosis: Otalgia, right ear;Acute sinusitis Presentation: 03/31 19:13 Presenting complaint: Right ear pain, sinus congestion, and headache x 2 days. Pt is 37 hb weeks , VICKIE 04/21. Transition of care: patient was not received from another setting of care. Onset of symptoms was March 30, 2019. Risk Assessment: Do you want to hurt yourself or someone else? Patient reports no desire to harm self or others. Care prior to arrival: None. 19:13 Method Of Arrival: Ambulatory hb 19:13 Acuity: HONG 4 hb 20:08 Initial Sepsis Screen: Does the patient meet any 2 criteria? No. Patient's initial aj1 sepsis screen is negative. Does the patient have a suspected source of infection? No. Patient's initial sepsis screen is negative. Historical: - Allergies: 19:15 No Known Allergies; hb - PMHx: 19:15 Bipolar disorder; Depression; GERD; PTSD; hb - PSHx: 19:15 None; hb - Immunization history:: Adult Immunizations up to date. - Social history:: Smoking status: Patient/guardian denies using tobacco. - Ebola Screening: : No symptoms or risks identified at this time. Screenin:07 Abuse screen: Denies threats or abuse. Denies injuries from another. Nutritional aj1 screening: No deficits noted. Tuberculosis screening: No symptoms or risk factors identified. Fall Risk None identified. Assessment: 20:07 General: Appears in no apparent distress. comfortable, Behavior is calm, cooperative, aj1 appropriate for age. Pain: Complains of pain in scalp and right ear. Neuro: Level of Consciousness is awake, alert, obeys commands, Oriented to person, place, time, situation. Cardiovascular: Patient's skin is warm and dry. Respiratory: Airway is patent Respiratory effort is even, unlabored, Respiratory pattern is regular, symmetrical. GI: No signs and/or symptoms were reported involving the gastrointestinal system. : No signs and/or symptoms were reported regarding the genitourinary system. EENT: Reports ear pain, sinus pressure. Derm: No signs and/or symptoms reported regarding the dermatologic system. Skin is pink, warm \T\ dry. normal. Musculoskeletal: No signs and/or symptoms reported regarding the musculoskeletal system. Circulation, motion, and sensation intact. Vital Signs: 19:14 BP 143 / 83; Pulse 82; Resp 16; Temp 98.2; Pulse Ox 100% on R/A; Weight 97.52 kg; hb Height 5 ft. 2 in. (157.48 cm); Pain 9/10; 19:14 Body Mass Index 39.32 (97.52 kg, 157.48 cm) hb ED Course: 19:10 Patient arrived in ED. es 19:14 Triage completed. hb 19:16 Arm band placed on. hb 19:18 [facility] pm1 19:19 Chavo Minaya MD is Attending Physician. pm1 20:07 Anupama Guerra RN is Primary Nurse. aj1 20:07 Patient has correct armband on for positive identification. Bed in low position. Call aj1 light in reach. Side rails up X 1. 20:07 No provider procedures requiring assistance completed. Patient did not have IV access aj1 during this emergency room visit. Administered Medications: No medications were administered Outcome: 19:28 Discharge ordered by MD. pm1 20:07 Discharged to home ambulatory. aj1 20:07 Condition: good 20:07 Discharge instructions given to patient, Instructed on discharge instructions, follow up and referral plans. medication usage, Demonstrated understanding of instructions, follow-up care, medications, Prescriptions given X 1. 20:08 Patient left the ED. aj Signatures: Anupama Guerra RN RN [facility] Jenae Dwyer Silver Tyler NP [employer]ER pm1 Heather Meneses RN RN Corrections: (The following items were deleted from the chart) 19:15 19:13 Presenting complaint: Right ear pain, sinus congestion, and headache x 2 days hb hb
[2019-03-31 20:23] VITALS: BP 143/83; TEMP 98.2; O2SAT 100
== END 2019-03-31 20:08 | disposition home or self-care (01) ==
LOC: ER 19:07
DX: J01.90 Acute sinusitis, unspecified (principal)
CPT/HCPCS: 99282

== ENCOUNTER 2019-08-02 19:10 | Emergency (ER) | payer OTHER, SELFPAY ==
--- NOTE | 2019-08-02 20:33 | EDPHYS ---
Physician Documentation [facility] Name: Sarah Bunch Age: 24 yrs Sex: Female : 1995 Arrival Date: 08/02/2019 Time: 19:14 Bed 15 Private MD: ED Physician Vega Herman HPI: 08/02 20:26 This 24 yrs old Female presents to ER via Ambulatory with complaints of jr8 Headache, Ear Pain. 20:26 Onset: The symptoms/episode began/occurred gradually, 2 week(s) ago. Associated signs jr8 and symptoms: Pertinent positives: sinus congestion, sinus tenderness. Severity of symptoms: At its worst the pain was moderate, in the emergency department the pain is unchanged. The patient has not experienced similar symptoms in the past. The patient has not recently seen a physician. Has tried multiple OTC medications without relief . 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 - Social history:: Smoking status: Patient/guardian denies using tobacco. - Ebola Screening: : Patient negative for fever greater than or equal to 101.5 degrees Fahrenheit, and additional compatible Ebola Virus Disease symptoms Patient denies exposure to infectious person Patient denies travel to an Ebola-affected area in the 21 days before illness onset No symptoms or risks identified at this time. ROS: 20:26 Eyes: Negative for injury, pain, redness, and discharge, Neck: Negative for injury, jr8 pain, and swelling, Cardiovascular: Negative for chest pain, palpitations, and edema, Respiratory: Negative for shortness of breath, cough, wheezing, and pleuritic chest pain, Abdomen/GI: Negative for abdominal pain, nausea, vomiting, diarrhea, and constipation, Back: Negative for injury and pain, MS/Extremity: Negative for injury and deformity, Skin: Negative for injury, rash, and discoloration. 20:26 ENT: Positive for ear pain, rhinorrhea, sinus congestion, sinus pain, Negative for drainage from ear(s), sore throat, dental pain, difficulty swallowing, difficulty handling secretions, hoarseness. 20:26 Neuro: Positive for headache, Negative for altered mental status, dizziness, gait disturbance, hearing loss, loss of consciousness, numbness, seizure activity, speech changes, syncope, near syncope. Exam: 20:26 Eyes: Pupils equal round and reactive to light, extra-ocular motions intact. Lids and jr8 lashes normal. Conjunctiva and sclera are non-icteric and not injected. Cornea within normal limits. Periorbital areas with no swelling, redness, or edema. ENT: Nares patent. Mild erythema to turbinates with clear rhinorrhea present. No septal abnormalities noted. Tympanic membranes are normal and external auditory canals are clear. Oropharynx with no redness, swelling, or masses, exudates, or evidence of obstruction, uvula midline. Mucous membranes moist. Neck: Trachea midline, no thyromegaly or masses palpated, and no cervical lymphadenopathy. Supple, full range of motion without nuchal rigidity, or vertebral point tenderness. No Meningismus. Cardiovascular: Regular rate and rhythm with a normal S1 and S2. No gallops, murmurs, or rubs. Normal PMI, no JVD. No pulse deficits. Respiratory: Lungs have equal breath sounds bilaterally, clear to auscultation and percussion. No rales, rhonchi or wheezes noted. No increased work of breathing, no retractions or nasal flaring. Abdomen/GI: Soft, non-tender, with normal bowel sounds. No distension or tympany. No guarding or rebound. No evidence of tenderness throughout. Back: No spinal tenderness. No costovertebral tenderness. Full range of motion. Skin: Warm, dry with normal turgor. Normal color with no rashes, no lesions, and no evidence of cellulitis. MS/ Extremity: Pulses equal, no cyanosis. Neurovascular intact. Full, normal range of motion. Neuro: Awake and alert, GCS 15, oriented to person, place, time, and situation. Cranial nerves II-XII grossly intact. Motor strength 5/5 in all extremities. Sensory grossly intact. Cerebellar exam normal. Normal gait. Vital Signs: 19:25 BP 126 / 78; Pulse 96; Resp 18 S; Temp 97.6(O); Pulse Ox 100% on R/A; Weight 95.25 kg ca1 (R); Height 5 ft. 7 in. (170.18 cm) (R); Pain 6/10; 20:40 BP 112 / 84; Pulse 90; Resp 19; Temp 98; Pulse Ox 99% ; rr5 19:25 Body Mass Index 32.89 (95.25 kg, 170.18 cm) ca1 MDM: 20:21 Patient medically screened. jr8 20:26 Data reviewed: vital signs, nurses notes, and as a result, I will discharge patient. jr8 Data interpreted: Pulse oximetry: on room air is 100 %. Interpretation: normal. Counseling: I had a detailed discussion with the patient and/or guardian regarding: the historical points, exam findings, and any diagnostic results supporting the discharge/admit diagnosis, the need for outpatient follow up, a family practitioner, to return to the emergency department if symptoms worsen or persist or if there are any questions or concerns that arise at home. Administered Medications: No medications were administered Disposition: 23:18 Co-signature as Attending Physician, Vega Herman MD. rn Disposition: 08/02/19 20:32 Discharged to Home. Impression: Acute sinusitis. - Condition is Stable. - Discharge Instructions: Sinusitis, Adult. - Prescriptions for Prednisone 20 mg Oral Tablet - take 1 tablet by ORAL route once daily for 5 days; 5 tablet. Zithromax Z- Ac 250 mg Oral Tablet - take 1 tablet by ORAL route as directed for 5 days Day 1 - take two (2) tablets one time. Day 2, 3, 4 , 5 take one (1) tablet once daily.; 6 tablet. - Medication Reconciliation Form, Thank You Letter, Antibiotic Education, Prescription Opioid Use form. - Follow up: Private Physician; When: 1 week; Reason: Recheck today's complaints, Continuance of care, Re-evaluation by your physician. - Problem is new. - Symptoms have improved. Signatures: Vega Herman MD MD rn Roszak, Josh, PA PA jr8 Ben Redd RN RN rr5 Elizabeth Short RN RN ca1 Corrections: (The following items were deleted from the chart) 20:57 20:32 08/02/2019 20:32 Discharged to Home. Impression: Acute sinusitis. Condition is rr5 Stable. Forms are Medication Reconciliation Form, Thank You Letter, Antibiotic Education, Prescription Opioid Use. Follow up: Private Physician; When: 1 week; Reason: Recheck today's complaints, Continuance of care, Re-evaluation by your physician. Problem is new. Symptoms have improved. jr8
--- NOTE | 2019-08-02 20:33 | ER ---
Nurse's Notes [facility] Name: Sarah Bunch Age: 24 yrs Sex: Female : 1995 Arrival Date: 08/02/2019 Time: 19:14 Bed 15 Private MD: Diagnosis: Acute sinusitis Presentation: 08/02 19:21 Presenting complaint: Patient states: "I have a sinus infection again. I have this ca1 every 2-3 months". Pt c/o headache, sinus pressure and R ear pain. Denies fever. Transition of care: patient was not received from another setting of care. Onset of symptoms was August 02, 2019. Risk Assessment: Do you want to hurt yourself or someone else? Patient reports no desire to harm self or others. Initial Sepsis Screen: Does the patient meet any 2 criteria? No. Patient's initial sepsis screen is negative. Does the patient have a suspected source of infection? No. Patient's initial sepsis screen is negative. Care prior to arrival: None. 19:21 Method Of Arrival: Ambulatory ca1 19:21 Acuity: HONG 4 ca1 Triage Assessment: 20:20 Headache History: Denies prior headaches. General: Appears in no apparent distress. rr5 uncomfortable. Pain: Also complains of no other associated symptoms. 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 - Social history:: Smoking status: Patient/guardian denies using tobacco. - Ebola Screening: : Patient negative for fever greater than or equal to 101.5 degrees Fahrenheit, and additional compatible Ebola Virus Disease symptoms Patient denies exposure to infectious person Patient denies travel to an Ebola-affected area in the 21 days before illness onset No symptoms or risks identified at this time. Screenin:20 Abuse screen: Denies threats or abuse. Denies injuries from another. Nutritional rr5 screening: No deficits noted. Tuberculosis screening: No symptoms or risk factors identified. Fall Risk None identified. Total Gibbs Fall Scale indicates No Risk (0-24 pts). Assessment: 20:20 General: Appears in no apparent distress. uncomfortable, Behavior is calm, cooperative, rr5 appropriate for age, seen and examined by ED provider.. 20:20 Pain: Complains of pain in head and ear Pain does not radiate. Pain currently is 6 out rr5 of 10 on a pain scale. Quality of pain is described as aching, Pain began gradually, Is intermittent. Neuro: Level of Consciousness is awake, alert, obeys commands, Oriented to person, place, time, situation, Appropriate for age Reports headache. Cardiovascular: Capillary refill < 3 seconds Patient's skin is warm and dry. Respiratory: Airway is patent Respiratory effort is even, unlabored, Respiratory pattern is regular, symmetrical. GI: No signs and/or symptoms were reported involving the gastrointestinal system. : No signs and/or symptoms were reported regarding the genitourinary system. EENT: Reports pain in ear. Derm: Skin is intact, Skin temperature is warm. Musculoskeletal: Circulation, motion, and sensation intact. Capillary refill < 3 seconds. 20:45 Reassessment: Patient appears in no apparent distress at this time. Patient is alert, rr5 oriented x 3, equal unlabored respirations, skin warm/dry/pink. discharge instruction given and explained without complaints made. Vital Signs: 19:25 BP 126 / 78; Pulse 96; Resp 18 S; Temp 97.6(O); Pulse Ox 100% on R/A; Weight 95.25 kg ca1 (R); Height 5 ft. 7 in. (170.18 cm) (R); Pain 6/10; 20:40 BP 112 / 84; Pulse 90; Resp 19; Temp 98; Pulse Ox 99% ; rr5 19:25 Body Mass Index 32.89 (95.25 kg, 170.18 cm) ca1 ED Course: 19:14 Patient arrived in ED. cf2 19:24 Triage completed. ca1 19:25 Arm band placed on right wrist. ca1 20:20 Patient has correct armband on for positive identification. Bed in low position. Call rr5 light in reach. Side rails up X2. 20:21 Tono Kumar PA is PHCP. jr8 20:21 Vega Herman MD is Attending Physician. jr8 20:43 Ben Redd RN is Primary Nurse. rr5 20:47 No provider procedures requiring assistance completed. Patient did not have IV access rr5 during this emergency room visit. Administered Medications: No medications were administered Outcome: 20:32 Discharge ordered by . kamryn 20:47 Discharged to home ambulatory, with family. rr5 20:47 Condition: stable 20:47 Discharge instructions given to patient, family, Instructed on discharge instructions, follow up and referral plans. medication usage, Demonstrated understanding of instructions, follow-up care, medications, Prescriptions given X 2. 20:57 Patient left the ED. rr5 Signatures: Tono Kumar PA PA jr8 Ben Redd, RN RN rr5 Elizabeth Short RN RN [facility] Praveen Marroquin 2
[2019-08-02 21:54] VITALS: BP 112/84; TEMP 98; O2SAT 99
== END 2019-08-02 20:57 | disposition home or self-care (01) ==
LOC: ER 19:10
DX: J01.90 Acute sinusitis, unspecified (principal)
CPT/HCPCS: 99282

== ENCOUNTER 2019-12-29 19:34 | Emergency (ER) | payer SELFPAY ==
--- OUTSIDE RECORDS SUMMARY | 2019-12-29 19:36 | XMS REPORT ---
:1995 Author Organization [employer] Care Team Providers Name Role Phone Carmela [...] Status Dosage System Date Date Amoxicillin ND [id number] 500 MG Orally FebruaryMarch 11, Active 2 tablets every 8 hrs 2017 2018 Loestrin Fe [facility] [id number] 1-20 MG-MCG Active 1 tablet 1/20 Orally Once a day Results Name Result Date Reference Range Unit Abnormality Flag TEST URINE ----RESULTS NEG 20180306 URINALYSIS AUTO W/O SCOPE (80297) ----PROTEIN NEG 20180306 ----pH 6.5 20180306 ----NIT NEG 20180306 ----ANDREWS TRACE 20180306 ----URO 0.2 20180306 ----SPECIFIC GRAVITY 1.015 20180306 ----BLO NEG 20180306 ----BILIRUBIN NEG 20180306 ----KETONES NEG 20180306 ----GLUCOSE NEG 20180306 Summary Purpose [employer] Submission
--- NOTE | 2019-12-29 21:09 | ER ---
Nurse's Notes [facility] Name: Sraah Bunch Age: 24 yrs Sex: Female : 1995 Arrival Date: 12/29/2019 Time: 19:39 Bed 25 Private MD: Diagnosis: Pain in left shoulder Presentation: 12/29 19:56 Presenting complaint: Patient states: L shoulder blade pain radiating to the neck x 3 ca1 days. Reports headaches and pain with movement of the neck and L arm. Transition of care: patient was not received from another setting of care. Onset of symptoms was December 29, 2019. Risk Assessment: Do you want to hurt yourself or someone else? Patient reports no desire to harm self or others. Initial Sepsis Screen: Does the patient meet any 2 criteria? No. Patient's initial sepsis screen is negative. Does the patient have a suspected source of infection? No. Patient's initial sepsis screen is negative. Care prior to arrival: None. 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 - Coronavirus screen:: The patient has NOT traveled to [place] in the past 14 days. The patient has NOT had contact with known/suspected case of Coronavirus?. - Social history:: Smoking status: Patient denies any tobacco usage or history of. - Ebola Screening: : Patient negative for fever greater than or equal to 101.5 degrees Fahrenheit, and additional compatible Ebola Virus Disease symptoms Patient denies exposure to infectious person Patient denies travel to an Ebola-affected area in the 21 days before illness onset No symptoms or risks identified at this time. Screenin:56 Abuse screen: Denies threats or abuse. Denies injuries from another. Nutritional mg2 screening: No deficits noted. Tuberculosis screening: No symptoms or risk factors identified. Fall Risk None identified. Assessment: 20:55 General: Appears in no apparent distress. comfortable, Behavior is calm, cooperative. mg2 Pain: Complains of pain in left shoulder. Neuro: Level of Consciousness is awake, alert, obeys commands, Oriented to person, place, time, situation. Cardiovascular: Capillary refill < 3 seconds Patient's skin is warm and dry. Respiratory: Airway is patent Respiratory effort is even, unlabored, Respiratory pattern is regular, symmetrical. GI: No signs and/or symptoms were reported involving the gastrointestinal system. : No signs and/or symptoms were reported regarding the genitourinary system. EENT: No signs and/or symptoms were reported regarding the EENT system. Derm: Skin is intact, is healthy with good turgor, Skin is pink, warm \T\ dry. normal. Musculoskeletal: Circulation, motion, and sensation intact. Capillary refill < 3 seconds. Vital Signs: 19:59 Pulse 93; Resp 16 S; Temp 97.3(TE); Pulse Ox 100% on R/A; Weight 77.11 kg (R); Height 5 ca1 ft. 6 in. (167.64 cm) (R); Pain 8/10; 21:18 BP 115 / 78; Pulse 80; Resp 18; Temp 98; Pulse Ox 100% on R/A; mg2 19:59 Body Mass Index 27.44 (77.11 kg, 167.64 cm) ca1 ED Course: 19:39 Patient arrived in ED. cl3 19:44 Tono Kumar PA is PHCP. jr8 19:44 Duc Simmons MD is Attending Physician. jr8 19:57 Triage completed. ca1 19:59 Arm band placed on right wrist. ca1 20:12 Jaron Miller RN is Primary Nurse. mg2 20:56 Patient has correct armband on for positive identification. mg2 20:56 No provider procedures requiring assistance completed. Patient did not have IV access mg2 during this emergency room visit. 20:59 XRAY Shoulder LEFT 2 view In Process Unspecified. EDMS Administered Medications: No medications were administered Outcome: 21:09 Discharge ordered by . jr8 21:18 Discharged to home ambulatory, with family. mg2 21:18 Condition: stable 21:18 Discharge instructions given to patient, family, Instructed on discharge instructions, follow up and referral plans. medication usage, Demonstrated understanding of instructions, follow-up care, medications, Prescriptions given X 2. 21:18 Patient left the ED. mg2 Signatures: Dispatcher [employer] EDMS Tono Kumar PA PA jr8 Jaron Miller, RN RN mg2 Elizabeth Short, RN RN ca1 Zulay Frankel cl3
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
--- NOTE | 2019-12-30 08:20 | RAD REPORT ---
EXAM DESCRIPTION: RAD - Shoulder Left 2 View - 12/29/2019 8:49 pm CLINICAL HISTORY: PAIN, left shoulder pain posteriorly radiating to the neck, pain with movement COMPARISON: No comparisons TECHNIQUE: Internal and external rotation views of the left shoulder were obtained. FINDINGS: There is no fracture or dislocation. AC joint is normal in appearance. Lateral downward an gulation of the acromion narrows the acromial humeral joint space. This can be associated with should er impingement. No soft tissue calcifications. Upper ribcage and lung parenchyma unremarkable. IMPRESSION: Negative two-view left shoulder examination for acute findings.
== END 2019-12-29 21:18 | disposition home or self-care (01) ==
LOC: ER 19:34
DX: M25.512 Pain in left shoulder (principal)
CPT/HCPCS: 99283

== ENCOUNTER 2020-06-26 23:30 | Emergency (ER) | payer OTHER, SELFPAY ==
--- OUTSIDE RECORDS SUMMARY | 2020-06-26 23:32 | XMS REPORT | Continuity of Care Document ---
:1995 Author Organization [facility] t Address [facility] Hough [address] [place] [id number] Care Team Providers Name Role Phone Unavailable Unavailable Unavailable Problems Condition Condition Condition Status Onset Resolution Last Treating Co mments Source Name Details Category Date Date Treatment Clinician Date Encounter Encounter Diagnosis Active [facility] - initial initial Memoria prescripti prescripti l on of on of Outpati contracept contracept en t xu pills xu pills Clin ics Problem Active [facility] (spontaneo (spontaneo Jennifer kes - us vaginal us vaginal Me moria delivery) delivery) l Outpati ent Clinics LGSIL on LGSIL on Problem Active [facility] Pap smear Pap smear Luke [facility] - of cervix of cervix [place] nigel l [facility] ent Clinics Acute Acute Diagnosis Active [facility] maxillary maxillary Luke s - sinusitis, sinusitis, Me moria recurrence recurrence l not not Outpati specified specified ent Clinics High-risk High-risk Problem Active [facility] , , Jennifer kes - young young Memoria multigravi multigravi l da in da in Outpati third third ent trimester trimester Clin ics Smoker Smoker Problem Active [facility] - Memoria l Outpati ent Clinics Diagnosis Active [facility] exam exam [facility] - Memoria l Outpati ent Clinics Problem Active [facility] growth growth [facility]ukes - retardatio retardatio Me moria n, n, l 2,000-2,49 2,000-2,49 Ou tpati 9 grams 9 grams ent Clinics 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 Medications Ordered Filled Start Stop Current Ordering Indication Dosage Frequency Signature Comments Components Source Medication Medication Date Date Medication? Clinician (SIG) Name Name Amoxicillin Amoxicillin 2017- 2018- No Carmela [address] [facility] 03-06 [facility] - 00:00: 00:00 [facility] 00 :00 [facility] Loestrin Fe Loestrin Fe Yes Carmela [address] [facility] [address] 11/29 11/[facility] Procedures This patient has no known procedures. Encounters Start End Encounter Admission Attending Care Care Encounter Source Date/Time Date/Time Type Type Clinicians Facility Department ID 2018-03-06 2018-03-06 Outpatient Erica Melo [id number] 10[facility]00 10[facility]00 [facility] Results This patient has no known results.
[2020-06-27 00:31] LABS: Urine Bacteria >50 /HPF (<20); Urine Culture Reflex Order REFLEXED; Urine Urothelial Cells <5 /HPF (NONE SEEN); Urine Yeast with Hyphae PRESENT
[2020-06-27 00:32] LABS: Urine Yeast FEW (NONE SEEN)
--- NOTE | 2020-06-27 00:35 | ER ---
Nurse's Notes [facility] Name: Sarah Bnuch Age: 25 yrs Sex: Female : 1995 Arrival Date: 06/26/2020 Time: 23:36 Bed 18 Private MD: Diagnosis: Acute cystitis;Candidiasis of vulva and vagina Presentation: 06/26 23:49 Chief complaint: Patient states: Im about 7 months , I have some vaginal sg itching that started a few days ago, worsening today. pt denies abd pain, denies fever/vomiting/nausea/chills, denies vaginal bleeding or cramping at this time for triage. Coronavirus screen: Client denies travel out of the [place] in the last 14 days. At this time, the client does not indicate any symptoms associated with coronavirus-19. Ebola Screen: Patient negative for fever greater than or equal to 101.5 degrees Fahrenheit, and additional compatible Ebola Virus Disease symptoms Patient denies exposure to infectious person. Patient denies travel to an Ebola-affected area in the 21 days before illness onset. No symptoms or risks identified at this time. Initial Sepsis Screen: Does the patient meet any 2 criteria? No. Patient's initial sepsis screen is negative. Does the patient have a suspected source of infection? No. Patient's initial sepsis screen is negative. Risk Assessment: Do you want to hurt yourself or someone else? Patient reports no desire to harm self or others. Onset of symptoms was June 26, 2020. Care prior to arrival: None. Transition of care: patient was not received from another setting of care. 23:49 Acuity: HONG 4 sg 23:49 Method Of Arrival: Ambulatory sg Triage Assessment: 23:49 General: Appears in no apparent distress. Behavior is cooperative. 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 - Social history:: Smoking status: Patient denies any tobacco usage or history of. Screenin:49 Abuse screen: Denies threats or abuse. Nutritional screening: No deficits noted. mt2 Tuberculosis screening: No symptoms or risk factors identified. Fall Risk None identified. Assessment: 06/27 00:30 Reassessment: Patient and/or family updated on plan of care and expected duration. Pain mt2 level reassessed. Patient is alert, oriented x 3, equal unlabored respirations, skin warm/dry/pink. Pain: Complains of pain in pelvis Pain currently is 2 out of 10 on a pain scale. Quality of pain is described as itching. : Reports vaginal itching. Vital Signs: 06/26 23:52 BP 104 / 62; Pulse 89; Resp 16; Temp 97.9; Pulse Ox 100% on R/A; Weight 83.91 kg; sg Height 5 ft. 8 in. (172.72 cm); Pain 0/10; 06/27 00:46 BP 101 / 56; Pulse 72; Resp 19; Pulse Ox 96% on R/A; Pain 0/10; mt2 06/26 23:52 Body Mass Index 28.13 (83.91 kg, 172.72 cm) ED Course: 06/26 23:36 Patient arrived in ED. mr 23:44 Tono Kumar PA is PHCP. jr8 23:44 Thomas Rivera MD is Attending Physician. [facility] 23:49 Arm band placed on. 23:51 Triage completed. 23:55 Eliza Sidhu RN is Primary Nurse. mt2 06/27 00:00 Patient has correct armband on for positive identification. Call light in reach. Side mt2 rails up X 1. 00:47 No provider procedures requiring assistance completed. Patient did not have IV access mt2 during this emergency room visit. Administered Medications: No medications were administered Outcome: 00:34 Discharge ordered by . jr8 00:47 Discharged to home ambulatory. mt2 00:47 Condition: good 00:47 Discharge instructions given to patient, Instructed on discharge instructions, follow up and referral plans. medication usage, Demonstrated understanding of instructions, follow-up care, medications, Prescriptions given X 2. 00:48 Patient left the ED. mt2 Signatures: Fco German RN RN Swetha Sweeney mr Tono Kumar PA PA 8 Eliza Sidhu RN RN mt2
--- NOTE | 2020-06-27 00:35 | EDPHYS ---
Physician Documentation [facility] Name: Sarah Bunch Age: 25 yrs Sex: Female : 1995 Arrival Date: 06/26/2020 Time: 23:36 Bed 18 Private MD: ED Physician Thomas Rivera HPI: 06/27 00:12 This 25 yrs old Female presents to ER via Ambulatory with complaints of jr8 Vaginal Itching. 00:12 Onset: The symptoms/episode began/occurred gradually, 1 day(s) ago. Modifying factors: jr8 The symptoms are alleviated by nothing, the symptoms are aggravated by nothing. Associated signs and symptoms: The patient has no apparent associated signs or symptoms. Severity of symptoms: At their worst the symptoms were mild, in the emergency department the symptoms are unchanged. The patient has not experienced similar symptoms in the past. The patient has not recently seen a physician. Patient stated that she is and due in October. Started to have vaginal itching. No discharge at this time. Has mild burning with urination since itching began. 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 - Social history:: Smoking status: Patient denies any tobacco usage or history of. ROS: 06/27 00:12 Eyes: Negative for injury, pain, redness, and discharge, ENT: Negative for injury, jr8 pain, and discharge, Neck: Negative for injury, pain, and swelling, Cardiovascular: Negative for chest pain, palpitations, and edema, Respiratory: Negative for shortness of breath, cough, wheezing, and pleuritic chest pain, Abdomen/GI: Negative for abdominal pain, nausea, vomiting, diarrhea, and constipation, Back: Negative for injury and pain, MS/Extremity: Negative for injury and deformity, Skin: Negative for injury, rash, and discoloration, Neuro: Negative for headache, weakness, numbness, tingling, and seizure. : Positive for burning with urination, vaginal itching. Exam: 00:12 Constitutional: This is a well developed, well nourished patient who is awake, alert, jr8 and in no acute distress. Cardiovascular: Regular rate and rhythm with a normal S1 and S2. No gallops, murmurs, or rubs. Normal PMI, no JVD. No pulse deficits. Respiratory: Lungs have equal breath sounds bilaterally, clear to auscultation and percussion. No rales, rhonchi or wheezes noted. No increased work of breathing, no retractions or nasal flaring. Abdomen/GI: Soft, non-tender, with normal bowel sounds. No distension or tympany. No guarding or rebound. No evidence of tenderness throughout. Back: No spinal tenderness. No costovertebral tenderness. Full range of motion. Skin: Warm, dry with normal turgor. Normal color with no rashes, no lesions, and no evidence of cellulitis. MS/ Extremity: Pulses equal, no cyanosis. Neurovascular intact. Full, normal range of motion. Neuro: Awake and alert, GCS 15, oriented to person, place, time, and situation. Cranial nerves II-XII grossly intact. Motor strength 5/5 in all extremities. Sensory grossly intact. Cerebellar exam normal. Normal gait. Vital Signs: 06/26 23:52 BP 104 / 62; Pulse 89; Resp 16; Temp 97.9; Pulse Ox 100% on R/A; Weight 83.91 kg; sg Height 5 ft. 8 in. (172.72 cm); Pain 0/10; 06/27 00:46 BP 101 / 56; Pulse 72; Resp 19; Pulse Ox 96% on R/A; Pain 0/10; mt2 06/26 23:52 Body Mass Index 28.13 (83.91 kg, 172.72 cm) sg MDM: 06/26 23:44 Patient medically screened. jr8 06/27 00:33 Data reviewed: vital signs, nurses notes, lab test result(s), and as a result, I will [facility] discharge patient. Data interpreted: Pulse oximetry: on room air is 100 %. Interpretation: normal. Counseling: I had a detailed discussion with the patient and/or guardian regarding: the historical points, exam findings, and any diagnostic results supporting the discharge/admit diagnosis, lab results, the need for outpatient follow up, an OB/Gyne specialist, to return to the emergency department if symptoms worsen or persist or if there are any questions or concerns that arise at home. 06/26 23:59 Order name: Urine Microscopic Only; Complete Time: 00:33 [facility] 06/27 00:33 Order name: Urine Culture [facility] 06/26 23:59 Order name: Urine Dipstick-Ancillary (obtain specimen); Complete Time: 00:30 [facility] 06/27 00:47 Order name: Urine Dipstick--Ancillary (enter results) ar5 Administered Medications: No medications were administered Disposition: 10:50 Co-signature as Attending Physician, Thomas Rivera MD I agree with the assessment and [facility] plan of care. Disposition: 06/27/20 00:34 Discharged to Home. Impression: Acute cystitis, Candidiasis of vulva and vagina. - Condition is Stable. - Discharge Instructions: Urinary Tract Infection, Adult, Vaginal Yeast Infection, Adult. - Prescriptions for Clotrimazole 3 Day 2 % Vaginal Cream - insert 1 applicatorful by VAGINAL route At bedtime for 3 days; 3 Syringe. Macrobid 100 mg Oral Capsule - take 1 capsule by ORAL route every 12 hours for 7 days; 14 capsule. - Medication Reconciliation Form, Thank You Letter, Antibiotic Education, Prescription Opioid Use form. - Follow up: Private Physician; When: 5 - 6 days; Reason: Recheck today's complaints, Continuance of care, Re-evaluation by your physician. - Problem is new. - Symptoms have improved. Signatures: Dispatcher [employer] EDCO Fco German RN RN sg Anderson, Corey, MD MD cha Roszak, Josh, PA PA jr8 Eliza Sidhu RN RN mt2 Corrections: (The following items were deleted from the chart) 00:30 06/26 23:59 Urine Test ordered. jr8 mt2 06/27 00:48 00:34 06/27/2020 00:34 Discharged to Home. Impression: Acute cystitis; Candidiasis of mt2 vulva and vagina. Condition is Stable. Forms are Medication Reconciliation Form, Thank You Letter, Antibiotic Education, Prescription Opioid Use. Follow up: Private Physician; When: 5 - 6 days; Reason: Recheck today's complaints, Continuance of care, Re-evaluation by your physician. Problem is new. Symptoms have improved. jr8
[2020-06-27 00:53] VITALS: TEMP 97.9
[2020-06-27 00:54] VITALS: BP 101/56; O2SAT 96
[2020-06-27 00:59] LABS: Urine Blood 1+ (NEG); Urine Glucose NEGATIVE (NEG); Urine Protein 1+ (NEG); Urine Specific Gravity 1.025 (1.005-1.030); Urine pH 6.5 (5.0-7.0)
== END 2020-06-27 00:48 | disposition home or self-care (01) ==
LOC: ER 23:30
DX: O23.13 Infections of bladder in pregnancy, third trimester (principal); O98.813 Other maternal infectious and parasitic diseases complicating pregnancy, third trimester; B37.3 Candidiasis of vulva and vagina; Z3A.28 28 weeks gestation of pregnancy
CPT/HCPCS: 81003; 81015; 87086; 87088; 99282

== ENCOUNTER 2021-04-12 10:31 | Emergency (ER) | payer OTHER ==
--- OUTSIDE RECORDS SUMMARY | 2021-04-12 10:34 | XMS REPORT | Continuity of Care Document ---
:1995 Author Organization [facility] Address [address] [place] [address] Dr. [address] [place] [address] Care Team Providers Name Role Phone Unavailable Unavailable Unavailable Problems Condition Condition Condition Status Onset Resolution Last Treating Co mments Source Name Details Category Date Date Treatment Clinician Date High-risk High-risk Problem Active [facility] , Jennifer kes - young young Memoria multigravi multigravi l da in da in Outpati third third ent trimester trimester Clin ics Smoker Smoker Problem [facility] ent Clinics Diagnosis Active [facility] exam exam [facility] - Memoria l [facility] ent Clinics Problem Active [facility] growth growth [facility]ukes - retardatio retardatio Me moria n, n, l 2,000-2,49 2,000-2,49 Ou tpati 9 grams 9 grams ent Clinics 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), carrier), Outp ati +RV +RV ent culture, culture, Clinic s currently currently Encounter Encounter Diagnosis Active [facility] - initial initial Memoria prescripti prescripti l on of on of Outpati contracept contracept en t xu pills xu pills Clin ics Problem Active [facility] (spontaneo (spontaneo Jennifer kes - us vaginal us vaginal Me moria delivery) delivery) l [facility] ent Clinics LGSIL on LGSIL on Problem Active [facility] Pap smear Pap smear Luke s - of cervix of cervix Amador nigel l [facility] ent Clinics Acute Acute Diagnosis Active [facility] maxillary maxillary Luke s - sinusitis, sinusitis, Me moria recurrence recurrence l not not Outpati specified specified ent Clinics Allergies, Adverse Reactions, Alerts This patient has no known allergies or adverse reactions. Medications Ordered Filled Start Stop Current Ordering Indication Dosage Frequency Signature Comments Components Source Medication Medication Date Date Medication? Clinician (SIG) Name Name Amoxicillin Amoxicillin 2017- 2018- No Carmela [address] [facility] 03-06 [facility] - 00:00: 00:00 [facility] 00 :00 [facility] Loestrin Fe Loestrin Fe Yes Carmela [address] [facility] [facility] 11/29 11/29 [facility] Procedures This patient has no known procedures. Encounters Start End Encounter Admission Attending Care Care Encounter Source Date/Time Date/Time Type Type Clinicians Facility Department ID 2018-03-06 2018-03-06 Outpatient Erica Melo [id number] 10:00[facility]00 10:00:00 [facility] Results This patient has no known results.
[2021-04-12 10:58] LABS: Urine Blood Negative (Negative); Urine Glucose Negative (Negative); Urine Protein Negative (Negative); Urine pH 7.5 (5.0-7.0)
[2021-04-12 12:45] LABS: Urine Amorphous Sediment 1+ /HPF (NONE SEEN); Urine Bacteria 20-50 /HPF (<20); Urine RBC <5 /HPF (NONE SEEN)
--- NOTE | 2021-04-12 12:52 | ER ---
Nurse's Notes [facility] Name: Sarah Bunch Age: 26 yrs Sex: Female : 1995 Arrival Date: 04/12/2021 Time: 10:33 Bed 19 Private MD: Diagnosis: Urinary tract infection, site not specified;Acute maxillary sinusitis, unspecified;Dysuria Presentation: 04/12 10:35 Chief complaint: Patient states: Vaginal Itching started about a week ago, denies rb3 discharge. Coronavirus screen: At this time, the client does not indicate any symptoms associated with coronavirus-19. Ebola Screen: Patient denies travel to an Ebola-affected area in the 21 days before illness onset. 10:35 Method Of Arrival: Ambulatory rb3 10:35 Initial Sepsis Screen: Does the patient meet any 2 criteria? No. Patient's initial rb3 sepsis screen is negative. Does the patient have a suspected source of infection? No. Patient's initial sepsis screen is negative. Risk Assessment: Do you want to hurt yourself or someone else? Patient reports no desire to harm self or others. Onset of symptoms is unknown. 10:35 Acuity: HONG 4 rb3 Triage Assessment: 10:35 General: Appears in no apparent distress. Behavior is calm, cooperative, Denies fever. rb3 Pain: Denies pain. Neuro: Level of Consciousness is awake, alert, obeys commands, Oriented to person, place, time, situation. Cardiovascular: Patient's skin is warm and dry. Respiratory: Airway is patent Respiratory effort is even, unlabored, Respiratory pattern is regular, symmetrical. GI: No signs and/or symptoms were reported involving the gastrointestinal system. : Reports vaginal itching, Denies discharge. 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 - Social history:: Smoking status: Patient reports the use of cigarette tobacco products, smokes one pack cigarettes per day. Screenin:35 Abuse screen: Denies threats or abuse. Nutritional screening: No deficits noted. rb3 Tuberculosis screening: No symptoms or risk factors identified. Fall Risk None identified. Assessment: 10:35 General: See triage assessment. rb3 11:34 Reassessment: Patient appears in no apparent distress at this time. Pt. is playing on rb3 her cellphone. 12:30 Reassessment: Patient appears in no apparent distress at this time. Patient and/or rb3 family updated on plan of care and expected duration. Pain level reassessed. Patient is alert, oriented x 3, equal unlabored respirations, skin warm/dry/pink. 13:10 Reassessment: Patient appears in no apparent distress at this time. No changes from rb3 previously documented assessment. Vital Signs: 10:35 BP 114 / 76; Pulse 80; Resp 17; Temp 97.7; Pulse Ox 100% ; Weight 91.17 kg; Height 5 rb3 ft. 6 in. (167.64 cm); Pain 0/10; 11:34 BP 109 / 76; Pulse 59; Resp 16; Pulse Ox 100% ; rb3 12:30 BP 110 / 77; Pulse 60; Resp 16; Pulse Ox 100% ; rb3 13:10 BP 114 / 87; Pulse 57; Resp 16; Pulse Ox 100% ; rb3 10:35 Body Mass Index 32.44 (91.17 kg, 167.64 cm) rb3 ED Course: 10:33 Patient arrived in ED. am2 10:35 Arm band placed on right wrist. rb3 10:35 Patient has correct armband on for positive identification. Bed in low position. Call rb3 light in reach. Side rails up X 1. Pulse ox on. NIBP on. 10:36 Salvatore Larios MD is Attending Physician. kdr 10:43 Rafaela Alston, HELLEN is Primary Nurse. rb3 10:45 Triage completed. rb3 11:10 Urine Culture Sent. rb3 11:10 Urine Microscopic Only Sent. rb3 13:17 No provider procedures requiring assistance completed. Patient did not have IV access rb3 during this emergency room visit. Administered Medications: 12:57 Drug: Cipro (ciprofloxacin) 500 mg Route: PO; rb3 13:15 Follow up: Response: Medication administered at discharge. rb3 12:58 Drug: Pyridium (phenazopyridine) 200 mg Route: PO; rb3 13:15 Follow up: Response: Medication administered at discharge. rb3 Outcome: 12:52 Discharge ordered by . kdr 13:17 Discharged to home ambulatory. rb3 13:17 Condition: stable 13:17 Discharge instructions given to patient, Instructed on discharge instructions, follow up and referral plans. medication usage, Demonstrated understanding of instructions, follow-up care, medications, Prescriptions given X 2. 13:18 Patient left the ED. rb3 Signatures: Salvatore Larios MD MD kdr Moreno, Amanda am2 Barber, Rebecca, RN RN rb3
--- NOTE | 2021-04-12 12:52 | EDPHYS ---
Physician Documentation [facility] Name: Sarah Bunch Age: 26 yrs Sex: Female : 1995 Arrival Date: 04/12/2021 Time: 10:33 Bed 19 Private MD: ED Physician Salvatore Larios HPI: 04/12 13:17 This 26 yrs old Female presents to ER via Ambulatory with complaints of kdr Vaginal Itching. 13:17 The patient presents with urinary symptoms, dysuria, frequency, urgency. Onset: The kdr symptoms/episode began/occurred gradually, 2 week(s) ago, and became worse Seemed to improve after initial onset and then has become worse. in the last several days. Modifying factors: The symptoms are alleviated by nothing, the symptoms are aggravated by urinating. Associated signs and symptoms: Pertinent positives: Sinus congestion (frontal). Severity of symptoms: At their worst the symptoms were mild, moderate, in the emergency department the symptoms are unchanged. The patient has experienced similar episodes in the past, a few times. The patient has not recently seen a physician. 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 - Social history:: Smoking status: Patient reports the use of cigarette tobacco products, smokes one pack cigarettes per day. ROS: 13:17 Positive for urinary symptoms, urinary frequency, burning with urination, foul kdr smelling urine, Perineal itching. 13:17 Constitutional: Negative for fever, chills, and weight loss, Eyes: Negative for injury, pain, redness, and discharge, Neck: Negative for injury, pain, and swelling, Cardiovascular: Negative for chest pain, palpitations, and edema, Respiratory: Negative for shortness of breath, cough, wheezing, and pleuritic chest pain, Abdomen/GI: Negative for abdominal pain, nausea, vomiting, diarrhea, and constipation, Back: Negative for injury and pain, MS/Extremity: Negative for injury and deformity, Skin: Negative for injury, rash, and discoloration, Neuro: Negative for headache, weakness, numbness, tingling, and seizure activity. Psych: Negative for depression, anxiety, suicide ideation, homicidal ideation, and hallucinations, Allergy/Immunology: Negative for hives, rash, and allergies, Endocrine: Negative for neck swelling, polydipsia, polyuria, polyphagia, and marked weight changes, Hematologic/Lymphatic: Negative for swollen nodes, abnormal bleeding, and unusual bruising. Exam: 13:17 Constitutional: This is a well developed, well nourished patient who is awake, alert, kdr and in no acute distress. Head/Face: Normocephalic, atraumatic. Eyes: Pupils equal round and reactive to light, extra-ocular motions intact. Lids and lashes normal. Conjunctiva and sclera are non-icteric and not injected. Cornea within normal limits. Periorbital areas with no swelling, redness, or edema. Neck: Trachea midline, no thyromegaly or masses palpated, and no cervical lymphadenopathy. Supple, full range of motion without nuchal rigidity, or vertebral point tenderness. No Meningismus. Chest/axilla: Normal chest wall appearance and motion. Nontender with no deformity. No lesions are appreciated. Cardiovascular: Regular rate and rhythm with a normal S1 and S2. No gallops, murmurs, or rubs. Normal PMI, no JVD. No pulse deficits. Respiratory: Lungs have equal breath sounds bilaterally, clear to auscultation and percussion. No rales, rhonchi or wheezes noted. No increased work of breathing, no retractions or nasal flaring. Abdomen/GI: Soft, non-tender, with normal bowel sounds. No distension or tympany. No guarding or rebound. No evidence of tenderness throughout. Back: No spinal tenderness. No costovertebral tenderness. Full range of motion. Skin: Warm, dry with normal turgor. Normal color with no rashes, no lesions, and no evidence of cellulitis. MS/ Extremity: Pulses equal, no cyanosis. Neurovascular intact. Full, normal range of motion. Neuro: Awake and alert, GCS 15, oriented to person, place, time, and situation. Cranial nerves II-XII grossly intact. Motor strength 5/5 in all extremities. Sensory grossly intact. Cerebellar exam normal. Normal gait. Psych: Awake, alert, with orientation to person, place and time. Behavior, mood, and affect are within normal limits. Vital Signs: 10:35 BP 114 / 76; Pulse 80; Resp 17; Temp 97.7; Pulse Ox 100% ; Weight 91.17 kg; Height 5 rb3 ft. 6 in. (167.64 cm); Pain 0/10; 11:34 BP 109 / 76; Pulse 59; Resp 16; Pulse Ox 100% ; rb3 12:30 BP 110 / 77; Pulse 60; Resp 16; Pulse Ox 100% ; rb3 13:10 BP 114 / 87; Pulse 57; Resp 16; Pulse Ox 100% ; rb3 10:35 Body Mass Index 32.44 (91.17 kg, 167.64 cm) rb3 MDM: 12:52 Patient medically screened. kdr 13:17 Data reviewed: vital signs, nurses notes, lab test result(s). Counseling: I had a kdr detailed discussion with the patient and/or guardian regarding: the historical points, exam findings, and any diagnostic results supporting the discharge/admit diagnosis, lab results, the need for outpatient follow up. 04/12 10:57 Order name: Urine Dipstick-Ancillary; Complete Time: 11:02 EDMS 04/12 11:01 Order name: Urine Microscopic Only bd 04/12 11:01 Order name: Urine Culture bd 04/12 11:02 Order name: Urine Microscopic Only; Complete Time: 12:50 EDMS 04/12 11:02 Order name: Urine Culture EDFL 04/12 11:02 Order name: Urine --Ancillary (enter results) bd Administered Medications: 12:57 Drug: Cipro (ciprofloxacin) 500 mg Route: PO; rb3 13:15 Follow up: Response: Medication administered at discharge. rb3 12:58 Drug: Pyridium (phenazopyridine) 200 mg Route: PO; rb3 13:15 Follow up: Response: Medication administered at discharge. rb3 Disposition: 04/12/21 12:52 Discharged to Home. Impression: Urinary tract infection, site not specified, Acute maxillary sinusitis, unspecified, Dysuria. - Condition is Stable. - Discharge Instructions: Dysuria, Sinusitis, Adult, [id number], Urinary Tract Infection, Adult, [id number]. - Prescriptions for Pyridium 200 mg Oral Tablet - take 1 tablet by ORAL route every 8 hours for 3 days; 9 tablet. Cipro 500 mg Oral Tablet - take 1 tablet by ORAL route every 12 hours for 7 days; 14 tablet. - Medication Reconciliation Form, Thank You Letter, Antibiotic Education form. - Follow up: Private Physician; When: 2 - 3 days; Reason: If symptoms return, Further diagnostic work-up, Recheck today's complaints, Continuance of care, Re-evaluation by your physician. - Problem is new. - Symptoms have improved. Signatures: Dispatcher [employer] EDFL Salvatore Larios MD MD kdr Barber, Rebecca RN RN rb3 Corrections: (The following items were deleted from the chart) 13:18 12:52 04/12/2021 12:52 Discharged to Home. Impression: Urinary tract infection, site rb3 not specified; Acute maxillary sinusitis, unspecified; Dysuria. Condition is Stable. Forms are Medication Reconciliation Form, Thank You Letter, Antibiotic Education, Prescription Opioid Use. Follow up: Private Physician; When: 2 - 3 days; Reason: If symptoms return, Further diagnostic work-up, Recheck today's complaints, Continuance of care, Re-evaluation by your physician. Problem is new. Symptoms have improved. kdr
[2021-04-12] MEDS ORDERED: PHENAZOPYRIDINE 100MG TAB PO ONE (13:16)
[2021-04-12] MEDS ORDERED: CIPROFLOXACIN HCL 500 MG TAB ONE (13:16)
[2021-04-12 13:24] VITALS: TEMP 97.7; O2SAT 100
[2021-04-12 13:30] VITALS: BP 114/87
== END 2021-04-12 13:18 | disposition home or self-care (01) ==
LOC: ER 10:31
DX: N39.0 Urinary tract infection, site not specified (principal); J01.00 Acute maxillary sinusitis, unspecified; F17.210 Nicotine dependence, cigarettes, uncomplicated
CPT/HCPCS: 81003; 81015; 81025; 87086; 87088; 99284

== ENCOUNTER 2021-08-03 10:01 | Emergency (ER) | payer OTHER ==
[2021-08-03 12:24] LABS: SARS-COV-2 RT PCR NEGATIVE (NEGATIVE)
--- NOTE | 2021-08-03 12:38 | EDPHYS ---
Physician Documentation [facility] Name: Sarah Bunch Age: 26 yrs Sex: Female : 1995 Arrival Date: 08/03/2021 Time: 10:04 Bed 14 Private MD: ED Physician Salvatore Larios HPI: 08/03 17:10 This 26 yrs old Female presents to ER via Ambulatory with complaints of Ear kb Pain, Sinus Congestion, Back Pain. 17:10 The patient or guardian reports cough. Onset: The symptoms/episode began/occurred 10 kb day(s) ago. Severity of symptoms: At their worst the symptoms were moderate, in the emergency department the symptoms are unchanged. Modifying factors: The symptoms are alleviated by nothing, the symptoms are aggravated by nothing. Associated signs and symptoms: Pertinent positives: rhinorrhea, Pertinent negatives: chest pain, diarrhea, ear ache, fever, nausea, sore throat, vomiting. The patient has not experienced similar symptoms in the past. The patient has not recently seen a physician. Pt reports cough, congestion and right ear pain for 10 days. . 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 - Social history:: Smoking status: Patient reports the use of cigarette tobacco products, smokes one pack cigarettes per day. ROS: 17:09 Constitutional: Negative for fever, chills, and weight loss. kb 17:09 ENT: Positive for ear pain, rhinorrhea, sinus congestion. 17:09 Respiratory: Positive for cough, Negative for dyspnea on exertion, hemoptysis, orthopnea, pleurisy, shortness of breath, sputum production, wheezing. 17:09 All other systems are negative. Exam: 17:09 Constitutional: This is a well developed, well nourished patient who is awake, alert, kb and in no acute distress. Head/Face: Normocephalic, atraumatic. ENT: Moist Mucous membranes Cardiovascular: Regular rate and rhythm with a normal S1 and S2. No gallops, murmurs, or rubs. No pulse deficits. Respiratory: Respirations even and unlabored. No increased work of breathing, no retractions or nasal flaring. Skin: Warm, dry with normal turgor. Normal color. MS/ Extremity: Pulses equal, no cyanosis. Neurovascular intact. Full, normal range of motion. Neuro: Awake and alert, GCS 15, oriented to person, place, time, and situation. Moves all extremities. Normal gait. Psych: Awake, alert, with orientation to person, place and time. Behavior, mood, and affect are within normal limits. Vital Signs: 10:08 BP 126 / 77; Pulse 81; Resp 18 S; Temp 98.1(O); Pulse Ox 100% on R/A; aa5 13:28 BP 121 / 71; Pulse 83; Resp 17; Pulse Ox 100% on R/A; oh MDM: 10:06 Patient medically screened. kb 16:58 Data reviewed: vital signs, nurses notes. Data interpreted: Pulse oximetry: on room air kb is 100 %. Interpretation: normal. Counseling: I had a detailed discussion with the patient and/or guardian regarding: the historical points, exam findings, and any diagnostic results supporting the discharge/admit diagnosis, lab results, the need for outpatient follow up, a family practitioner, to return to the emergency department if symptoms worsen or persist or if there are any questions or concerns that arise at home. 08/03 10:13 Order name: Flu 08/03 10:13 Order name: COVID-19 : Document "Date of Symptom Onset" if Symptomatic. 08/03 12:24 Order name: COVID-19/FLU A+B; Complete Time: 12:26 EDMS Administered Medications: No medications were administered Disposition Summary: 08/03/21 12:38 Discharge Ordered Location: Home kb Condition: Stable kb Diagnosis - Acute sinusitis, unspecified kb Followup: kb - With: Emergency Department - When: As needed - Reason: Worsening of condition Followup: kb - With: Private Physician - When: 2 - 3 days - Reason: Recheck today's complaints, Continuance of care, Re-evaluation by your physician Discharge Instructions: - Discharge Summary Sheet kb - Sinusitis, Adult, [id number] kb Forms: - Medication Reconciliation Form kb - Thank You Letter kb - Antibiotic Education kb - Prescription Opioid Use kb Addendum: 08/04/2021 16:59 Co-signature as Attending Physician, Salvatore Larios MD I agree with the assessment and k dr plan of care. Signatures: Dispatcher [employer] EDMS Faye Bailey, STRAWHAT BLOCKING OPERATOR-C STRAWHAT BLOCKING OPERATOR-Ckb Salvatore Larios MD MD kdr Althea Hoang, RN RN aa5 Corrections: (The following items were deleted from the chart) 08/03 11:01 10:14 CORONAVIRUS ordered. EDMS EDMS 11:37 10:14 Influenza Screen (A ordered. EDMS EDMS
--- NOTE | 2021-08-03 12:38 | ER ---
Nurse's Notes [facility] Name: Sarah Bunch Age: 26 yrs Sex: Female : 1995 Arrival Date: 08/03/2021 Time: 10:04 Bed 14 Private MD: Diagnosis: Acute sinusitis, unspecified Presentation: 08/03 10:08 Chief complaint: Patient states: cough, congestion, sinus pressure x 1-2 weeks ago. Pt aa5 states "my kids are all sick". Coronavirus screen: congestion, cough unrelated to allergies. Ebola Screen: Patient negative for fever greater than or equal to 101.5 degrees Fahrenheit, and additional compatible Ebola Virus Disease symptoms. Initial Sepsis Screen: Does the patient meet any 2 criteria? No. Patient's initial sepsis screen is negative. Does the patient have a suspected source of infection? No. Patient's initial sepsis screen is negative. Risk Assessment: Do you want to hurt yourself or someone else? Patient reports no desire to harm self or others. Onset of symptoms was July 2021. 10:08 Method Of Arrival: Ambulatory aa5 10:08 Acuity: OHNG 4 aa5 Triage Assessment: 13:28 General: Appears comfortable, Behavior is calm, cooperative. 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 - Social history:: Smoking status: Patient reports the use of cigarette tobacco products, smokes one pack cigarettes per day. Screenin:44 Abuse screen: Denies threats or abuse. Nutritional screening: No deficits noted. oh Tuberculosis screening: No symptoms or risk factors identified. Fall Risk None identified. Assessment: 10:43 Pain: Complains of pain in sinus. EENT: Reports nasal congestion nasal discharge that oh is watery. Vital Signs: 10:08 BP 126 / 77; Pulse 81; Resp 18 S; Temp 98.1(O); Pulse Ox 100% on R/A; aa5 13:28 BP 121 / 71; Pulse 83; Resp 17; Pulse Ox 100% on R/A; oh ED Course: 10:04 Patient arrived in ED. mr 10:04 Faye Bailey FNP-C is [facility]. kb 10:04 Salvatore Larios MD is Attending Physician. kb 10:08 Arm band placed on. aa5 10:09 Triage completed. aa5 10:23 Everette Willams, RN is Primary Nurse. oh 11:13 COVID swab sent to lab. Flu and/or RSV swab sent to lab. oh 13:28 Bed in low position. Call light in reach. oh 13:29 No provider procedures requiring assistance completed. oh 13:29 Patient did not have IV access during this emergency room visit. oh Administered Medications: No medications were administered Outcome: 12:38 Discharge ordered by MD. kb 13:29 Discharged to home oh 13:29 Condition: stable 13:29 Discharge instructions given to patient. 13:29 Patient left the ED. oh Signatures: Faye Bailey FNP-C FNP-Leo PatelSwetha mr HoangAlthea RN RN aa5 Everette Willams, RN RN oh Corrections: (The following items were deleted from the chart) 10:10 10:08 BP 126 / 77; Pulse 81bpm; Resp 18bpm; Spontaneous; Pulse Ox 100% RA; aa5 aa5
[2021-08-03 13:49] VITALS: TEMP 98.1; O2SAT 100
[2021-08-03 13:50] VITALS: BP 121/71
== END 2021-08-03 13:29 | disposition home or self-care (01) ==
LOC: ER 10:01
DX: J01.90 Acute sinusitis, unspecified (principal); Z20.822 Contact with and (suspected) exposure to COVID-19
CPT/HCPCS: 0240U; 99283